=== PATIENT | male | born 1940 | race African-American/Black ===

== ENCOUNTER 2020-04-22 05:03 | Inpatient (IN) | payer MEDICARE, SELFPAY ==
[2020-04-22 05:49] LABS: ALT (SGPT) 17 U/L (8-55); AST (SGOT) 22 U/L (5-34); Albumin 3.7 g/dL (3.4-4.8); Alkaline Phosphatase 81 U/L (40-110); Anion Gap 18 mmol/L (10-20); BUN (Urea Nitrogen) 21 mg/dL (8.4-25.7); Bilirubin, Total 1.6 mg/dL (0.2-1.2); Calc. Creatinine Clearance 0 mL/min (70-130); Calcium 8.7 mg/dL (7.8-10.44); Carbon Dioxide 18 mmol/L (23-31); Chloride 110 mmol/L (98-107); Globulin 2.7 g/dL (2.4-3.5); Glucose 175 mg/dL (83-110); Potassium 3.2 mmol/L (3.5-5.1); Protein, Total 6.4 g/dL (5.8-8.1); Sodium 143 mmol/L (136-145)
[2020-04-22 05:57] LABS: Hemoglobin 12.5 g/dL (14.0-18.0); Mean Corpuscular HGB CONC 30.2 g/dL (32.0-36.0); Mean Corpuscular Hemoglobin 21.9 pg (27.0-31.0); Mean Corpuscular Volume 72.6 fL (78.0-98.0); Mean Platelet Volume 6.3 fL (7.4-10.4); Platelet Count 155 thou/uL (130-400); RBC Distribution Width 15.5 % (11.5-14.5); White Blood Cell (WBC) Count 5.8 thou/uL (4.8-10.8)
[2020-04-22 05:58] LABS: Band 20 % (5-11); Lymphocytes 7 % (21-51); MDiff Complete? YES; Microcytosis SLIGHT = 6-15 cells (100X) (0-5/hpf); Monocytes 3 % (0-10); Neutrophil 70 % (42-75); Platelet Morphology Comment Appears Adequate
[2020-04-22 06:09] LABS: Bacteria/HPF None Seen HPF (None Seen); Bilirubin Negative (Negative); Blood, Urine 3+ (Negative); Clarity Extra Turbid (Clear); Glucose, Urine (Dipstick) Normal (Negative); Ketone, Urine Negative (Negative); Leukocyte 500 Leu/uL (Negative); Nitrite Negative (Negative); Protein, Urine (Dipstick) 100 mg/dL (Neg-Trace); RBC/HPF Greater than 50 HPF (0-3); Specific Gravity, Urine 1.014 (1.002-1.036); Squamous Epithelial 0-3 HPF (0-3); Urobilinogen Normal mg/dL (Less than 2); WBC/HPF Greater than 50 HPF (0-3)
[2020-04-22] MEDS ORDERED: Iothalamate Meglumine 60% 50 ML VIAL FS ONE (06:33)
[2020-04-22 06:44] LABS: SARS-CoV-2 NAA Rapid Test Not Detected (NotDetected)
[2020-04-22] MEDS ORDERED: Ondansetron PF 4 MG/2 ML Vial IVP PRN (07:15)
[2020-04-22] MEDS ORDERED: Acetaminophen 325 MG TAB PO PRN (07:15)
[2020-04-22] MEDS ORDERED: Ondansetron ODT 4 MG TAB PO PRN (07:15)
[2020-04-22] MEDS ORDERED: HYDROcodone/Acetaminophen 5/325 mg Tablet PO PRN ×2 (07:15)
--- NOTE | 2020-04-22 07:15 | PDOC.FPRHP ---
- History of Present Illness Chief Complaint: Abdominal Pain History of Present Illness: The following history was mostly obtained by patients son along with EMS and ED providers due to patients current AMS. Patient is an 79 yo male who presents via EMS with severe abdominal pain. 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 Patient try to push through the pain but then became very weak and so his son called EMS. EMS reports the patient was laying down on the ground in significant pain upon their arrival. Patient took one of his own [place] and received a gram of Tylenol from EMS in route. Upon arrival in the ED patient was found to have a fever of 102.5F and tachycardic in 120s. FAST exam showed severe hydronephrosis on the left kidney. CT abdomen pelvis without contrast showed left-sided 5 mm stone and hydronephrosis. Son reports that the patient has a history of recurrent UTIs and stones in his kidneys. Had a stent removed about 6 months ago. The ED provider discussed the case with on-call urologist Dr. Irvin who planned to take the patient to the operating room for stone removal and possible stent placement. ED Course: Given 2L NS, cefepime 2g, ativan 2mg, morphine 4 mg, zofran 4 mg. Vanc 1 g ordered but not yet given. - Allergies/Adverse Reactions Allergies Allergy/AdvReac Type Severity Reaction Status Date / Time No Known Allergies Allergy Unverified 04/22/20 08:33 - Home Medications Comments: Unknown home medications. Son reports patient has no allergies and takes "about 10 medications". - History PMHx: HTN, Nephrolithiasis, prostate cancer with history of radiation, history of stroke with none to minimal residual deficits PSHx: unknown FHx: unknown Social: unknown - Review of Systems ROS unobtainable: due to mental status (will follow commands to squeeze hands, otherwise no verbal responses) - Vital signs BP 179/87, Pulse 128, RR 40, O2 sat 96% on RA, Wt 90.72 kg - Physical Exam Constitutional: well developed (moaning/groaning in pain, unable to answer questions) HEENT: normocephalic and atraumatic, no scleral icterus, grossly normal vision, grossly normal hearing -HEENT: mucous membranes dry Neck: supple, trachea midline, no LAD Heart: normal S1/S2, no murmurs/rubs/gallops -Heart: tachycardic, sinus rhythm Lungs: CTAB, no respiratory distress Abdomen: soft, bowel sounds present, no masses/distention Musculoskeletal: normal structure, ROM grossly normal Neurological: other (patient writhing in pain, able to follow commands) Skin: no rash/lesions, no jaundice Heme/Lymphatic: no unusual bruising or bleeding, no petechia, no LAD FMR H&P: Results - Labs Result Diagrams: 04/22/20 10:29 04/22/20 05:18 Lab results: WBC 5.8 thou/uL (4.8-10.8) 04/22/20 05:18 Hgb 12.5 g/dL (14.0-18.0) L 04/22/20 05:18 Hct 41.4 % (42.0-52.0) L 04/22/20 05:18 MCV 72.6 fL (78.0-98.0) L 04/22/20 05:18 Plt Count 155 thou/uL (130-400) 04/22/20 05:18 Band Neuts % (Manual) 20 % (5-11) H 04/22/20 05:18 Sodium 143 mmol/L (136-145) 04/22/20 05:18 Potassium 3.2 mmol/L (3.5-5.1) L 04/22/20 05:18 Chloride 110 mmol/L (98-107) H 04/22/20 05:18 Carbon Dioxide 18 mmol/L (23-31) L 04/22/20 05:18 BUN 21 mg/dL (8.4-25.7) 04/22/20 05:18 Creatinine 2.14 mg/dL (0.7-1.3) H 04/22/20 05:18 Glucose 175 mg/dL (83-110) H 04/22/20 05:18 Lactic Acid 4.4 mmol/L (0.5-2.2) H* 04/22/20 05:18 Calcium 8.7 mg/dL (7.8-10.44) 04/22/20 05:18 Total Bilirubin 1.6 mg/dL (0.2-1.2) H 04/22/20 05:18 AST 22 U/L (5-34) 04/22/20 05:18 ALT 17 U/L (8-55) 04/22/20 05:18 Alkaline Phosphatase 81 U/L (40-110) 04/22/20 05:18 Serum Total Protein 6.4 g/dL (5.8-8.1) 04/22/20 05:18 Albumin 3.7 g/dL (3.4-4.8) 04/22/20 05:18 Urine Ketones Negative mg/dL (Negative) 04/22/20 05:17 Urine Blood 3+ (Negative) A 04/22/20 05:17 Urine Nitrite Negative (Negative) 04/22/20 05:17 Ur Leukocyte Esterase 500 Sona/uL (Negative) A 04/22/20 05:17 Urine RBC Greater than 50 HPF (0-3) A 04/22/20 05:17 Urine WBC Greater than 50 HPF (0-3) A 04/22/20 05:17 Ur Squamous Epith Cells 0-3 HPF (0-3) 04/22/20 05:17 Urine Bacteria None Seen HPF (None Seen) 04/22/20 05:17 FMR H&P: A/P - Problem List (1) Left nephrolithiasis Current Visit: Yes Status: Acute Code(s): N20.0 - CALCULUS OF KIDNEY (2) Hypertension Current Visit: Yes Status: Chronic Code(s): I10 - ESSENTIAL (PRIMARY) HYPERTENSION Qualifiers: Hypertension type: essential hypertension Qualified Code(s): I10 - Essential (primary) hypertension (3) Hypokalemia Current Visit: Yes Status: Acute Code(s): E87.6 - HYPOKALEMIA - Plan Sepsis, likely due to Nephrolithiasis -met criteria with fever 102.5F, HR 128, Lactic acid 4.4 -blood and urine cultures pending -WBC 5.8, 20% bands -UA: 500 Leuk, 100 protein, 3+ blood, >50 RBC, >50 WBC, 0-3 squamous epithelial, no bacteria -CMP: Na 143, K 3.2, Cr 2.14, BUN 21, GFR 36, Glucose 175 -will obtain troponin to assess for ACS r/o, EKG shows -s/p Cefepime and Vancomyin in ED -s/p 2L NS bolus, will continue IVF resuscitation with LR @ 200 mL/hr -CXR: no acute process, 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 Mao consulted--appreciate recs -plans to take patient to OR for stone removal -Tylenol and home [place] for pain control Hypokalemia -K 3.2 on admission -replete with IV and PO KCl as needed Hypertension -hold home meds. Diet: NPO, intubated VTE: Heparin Code status: FULL, pending discussion after surgery Disposition/LOS: admit to CCU Addendum - Attending - Attending Attestation Date/Time: 04/22/20 0260 I personally evaluated the patient and discussed the management with Dr. Martinez, in Cysto adn in CCU at time of admission. I agree with the History, Examination, Assessment and Plan documented above with any addition or exceptions noted below. PResumptive UTI, with urinary obstruction. Septic shock. Empiric antibiotics started. NSTEMI secondary to sepsis/illness. Echo shows EF of 20%. Dr Booker not of the opinion that heparin is required. We appreciate Dr Booker care. I am also concerned that patient may have SMA occlusion. CTA of [facility] abdomen planned in consulation with Dr Peguero. Unfortunately hypotension has prevented CTA from proceeding. Right IJ CVC placed [facility] ultrasound guidance. I discussed care plan wtih son who is in agreement. Prognosis is poor. .
--- NOTE | 2020-04-22 07:38 | CT ---
PRELIMINARY REPORT/[facility]/EMERGENCY AFTER HOURS PROCEDURE: EXAM: CT Abdomen and Pelvis Without Intravenous Contrast CLINICAL HISTORY: RIGHT SIDED ABDOMINAL PAIN HISTORY OF UTIs. TECHNIQUE: Axial computed tomography images of the abdomen and pelvis without intravenous contrast. CONTRAST: None. COMPARISON: None FINDINGS: Examination is partially compromised by motion artifact. Imaged intrathoracic contents ar e remarkable for coronary artery disease and elevated left hemidiaphragm with associated atelectasis. Kidneys are normal in axis and position. Severe left hydroureteronephrosis. There is a d istal left ureteral 5 mm stone. Mild right hydroureteronephrosis. No ureteral stones. No urinary bladder stones. Multiple pelvic phleboliths. Distended gallbladder. No pericholecystic inflammatory f indings or calcified stones. Multiple low-density lesions in the liver measuring up to 5 cm are incompletely characterized. The pancreas, spleen, and adrenal glands demonstrate an unremarkable nonc ontrast appearance. Hollow enteric organs are normal in course and caliber. No appendicitis. No intra-abdominal free air/fluid or lymphadenopathy. Aorta is normal in caliber with densely scattered atherosclerosis. Superficial soft tissues are unremarkable. No acute or aggressive appearing skeletal findings. IMPRESSION: Severe left hydroureteronephrosis. There is a 5 mm distal left ureteral stone. Mild right hydroureteronephrosis may be due to a recently passed stone versus infection. No right ureteral or urinary bladder stones identified. Multiple hepatic lesions measure up to 5 cm, which are incompletel y characterized on this exam. MRI is recommended. Distended gallbladder without cholelithiasis or pericholecystic inflammatory findings. Consider ultrasound follow-up as warranted. Coronary artery disease. Elevated left hemidiaphragm. ELECTRONICALLY SIGNED BY: Kenny Winchester MD Apr 22, 2020 5:56:32 AM TWINE REELING MACHINE OPERATOR FINAL REPORT ABDOMEN CT WITHOUT CONTRAST PELVIC CT WITHOUT CONTRAST: HISTORY: Abdominal pain. History of urinary tract infection. COMPARISON: None. FINDINGS: Abdomen CT: Lung bases:Dependent atelectatic changes. Heart size: Normal heart size. No significant pericardial fluid. There are coronary calcifications. Aorta: Atherosclerosis and elongation. Solid organs: Limited evaluation by the absence of IV contrast. Hypodensities in the liver are presum ed to be hepatic cysts. Lymph nodes: No gastrohepatic, retrocrural or periportal lymphadenopathy. Gallbladder: Unremarkable. Mesentery: No mass, lymphadenopathy, free air or free fluid. Kidneys: Mild right-sided structures uropathy secondary to 1 mm calculus in the distal right ureter, best appreciated on coronal image 94.. Severe obstructive uropathy involving the left intrarenal and extra renal collecting system. There is thinning of the left renal cortex suggesting a chronic pr ocess. There are calcifications in the distal left ureter contributing to the overall degree of obstructive uropathy. Alimentary canal: Limited evaluation by the lack of oral contrast. No bowel obstruction. CT PELVIS: No mass, adenopathy, free air or free fluid. Urinary bladder: Unremarkable. Osseous structures: No lytic or blastic lesions. IMPRESSION: 1. This report is in agreement with initial report by [facility]. 2. Severe left-sided hydronephrosis and hydroureter secondary to calculi in the distal left ureter. G iven the presence of left renal cortical thinning, a long-standing process is favored. 3. Mild right-sided hydronephrosis. There appears to be a calculus in the distal right ureter measuri ng approximately 1 mm. Transcribed Date/Time: 04/22/2020 8:07 AM
--- NOTE | 2020-04-22 07:49 | RAD ---
RADIOGRAPH CHEST 1 VIEW: DATE: 04/22/2020 HISTORY: 79-year-old male with fever and tachycardia COMPARISON: None FINDINGS: There is no airspace density, pulmonary edema, or pneumothorax. The lateral costophrenic angles are n ot effaced. Left hemidiaphragm is very elevated. IMPRESSION: 1. Very elevated left hemidiaphragm suggestive of left phrenic nerve palsy. 2. Otherwise No acute pulmonary findings.
[2020-04-22] MEDS ORDERED: Promethazine HCl 25 MG/ML VIAL IM PRN (08:41)
[2020-04-22] MEDS ORDERED: Promethazine HCl 25 MG/ML VIAL SLOW IVP PRN (08:41)
[2020-04-22] MEDS ORDERED: Ondansetron HCl/PF 4 MG/2 ML Vial IVP PRN (08:41)
--- NOTE | 2020-04-22 08:50 | RAD ---
EXAM: Retrograde pyelogram INDICATIONS: Intraoperative imaging during ureteral stent placement COMPARISON: None. FINDINGS: 15 fluoroscopic images presented from OR. Opacification the right collecting structures with no significant abnormality. Placement of right ure teral stent. Opacification of left collecting structures show severe hydronephrosis. Wire is demonstrated in the l eft ureter and upper collecting structures. IMPRESSION: Intraoperative imaging
[2020-04-22] MEDS ORDERED: Potassium Chloride 40 MEQ in Sodium Chloride 0.9% 250 ML 250 ML IVPB SCH (09:00)
[2020-04-22] MEDS ORDERED: Labetalol HCl 100 MG/20 ML VIAL ONE (09:07)
[2020-04-22 09:08] LABS: Bacteria/HPF 2+ HPF (None Seen); Bilirubin Negative (Negative); Blood, Urine 1+ (Negative); Clarity Turbid (Clear); Glucose, Urine (Dipstick) Normal (Negative); Ketone, Urine Negative (Negative); Leukocyte 500 Leu/uL (Negative); Nitrite Negative (Negative); Protein, Urine (Dipstick) 30 mg/dL (Neg-Trace); Specific Gravity, Urine 1.009 (1.002-1.036); Squamous Epithelial None Seen HPF (0-3); Urobilinogen Normal mg/dL (Less than 2); WBC/HPF 21-50 HPF (0-3); pH, Urine 7.5 (5.0-9.0)
[2020-04-22 09:14] LABS: Bilirubin Negative (Negative); Blood, Urine 3+ (Negative); Clarity Turbid (Clear); Glucose, Urine (Dipstick) 70 mg/dL (Negative); Ketone, Urine Negative (Negative); Leukocyte 500 Leu/uL (Negative); Nitrite Negative (Negative); Protein, Urine (Dipstick) 100 mg/dL (Neg-Trace); RBC/HPF Greater than 50 HPF (0-3); Specific Gravity, Urine 1.021 (1.002-1.036); Squamous Epithelial 0-3 HPF (0-3); Urobilinogen Normal mg/dL (Less than 2); WBC/HPF 21-50 HPF (0-3); pH, Urine 8.5 (5.0-9.0)
[2020-04-22 09:22] LABS: Bacteria/HPF 2+ HPF (None Seen); Renal Epithelial 0-3 HPF (None Seen)
[2020-04-22] MEDS ORDERED: Nitroglycerin 0.4 MG TAB (25 Tab Bottle) SL PRN (09:25)
[2020-04-22] MEDS ORDERED: Heparin 10,000 UNITS/ 10 ML VIAL SLOW IVP SCH (09:30)
[2020-04-22] MEDS ORDERED: Metoprolol Tartrate 5 MG/5 ML VIAL IVP SCH (09:30)
[2020-04-22] MEDS ORDERED: Heparin 25,000 units/D5W 500 ML IVPB SCH (09:30)
[2020-04-22 09:38] LABS: Actual Bicarbonate (HCO3a) 17.2 mEq/L (22-28); Base Excess (BEa) -8.1 mEq/L (-2.0 to +3.0); CO2 Tension 34.4 mmHg (35.0-45.0); Calcium, Ionized (arterial) 1.13 mmol/L (1.12-1.30); Carboxyhemoglobin (COHb) 0.8 gm% (0.0-3.0); Hemoglobin (Hb) 12.6 g/dL (14.0-18.0); O2 Tension (PaO2), arterial 57.1 mmHg (> 60.0); Potassium - ABG Lab 2.76 mmol/L (3.70-5.30); pH, Arterial 7.32 (7.35-7.45)
[2020-04-22 09:39] LABS: Puncture Site LRA
--- NOTE | 2020-04-22 09:40 | OP ---
DATE OF PROCEDURE: 04/22/2020 PREOPERATIVE DIAGNOSES: Sepsis, pyuria, hematuria, chronic left hydro, left distal stone and mild right hydro. POSTOPERATIVE DIAGNOSES: Sepsis, pyuria, hematuria, chronic left hydro, left distal stone and mild right hydro. PROCEDURES PERFORMED: Cysto, bilateral retrogrades and bilateral stents. ANESTHESIA: General. ESTIMATED BLOOD LOSS: Less than 50. DRAINS PLACED: 6 x 26 double-J stent on the right, a 6 x 24 on the left, and a 16-Latvian Ribera catheter. FINDINGS: He had no evidence of stricture disease. He had a small prostate. There was no difficulty crossing it with the scope. He had radiation changes on the floor of the bladder. He had no bladder tumor, foreign body, or stone. He had very small ureteral orifices bilaterally. On the right side once we had passed a guidewire through a Pollack, he had very brisk urine output via the Pollack, which would suggest this side was obstructed. The urine was sent for urinalysis and culture did not appear purulent and it did not have an odor, but it was sent for C and S and culture that was on the right side. On the left side, the urine was darker, also not malodorous and this was also sent for urinalysis and culture. DESCRIPTION OF PROCEDURE: After obtaining written and verbal consent from I think the patient's son, he was taken to the operating suite. He was placed in supine position on treatment table. He was given a general anesthetic and oral intubation. PlexiPulses were placed in his lower extremities and turned on. He was placed in dorsal lithotomy position, sterilely prepped and draped. Cystoscopy was performed with a 22-Latvian sheath, this was well lubricated, passed under direct vision through the male urethra into the urinary bladder with aid of a 30-degree lens and video camera and monitor. The bladder was filled and emptied as it was examined both the 30 and the 70-degree lens. The ureteral orifices were quite small and this was probably related to his prior radiation. We brought in a Pollack catheter and brought in through that an angled Glidewire and we were able to direct this through the right ureteral orifice and up the right ureter. We followed this with the Pollack, placing it up in the region of renal pelvis and removed the Glidewire and he had a very brisk drip of urine out the distal end of the Pollack catheter, we collected about an ounce of urine for urinalysis and culture. We then fed a green guidewire up the Pollack and removed the Pollack and passed a 6 x 26 Polaris double-J stent up the right side, so that curled in the renal pelvis proximally and then curled in the bladder distally, a string was not left attached. The left ureter was also quite small. We were able to intubate it in the same manner with the Pollack catheter and angled Glidewire. It was tortuous and had a very distended renal pelvis and calyceal system. We obtained urine from this also and sent it for urinalysis and culture. We put a 6 x 24 Polaris double-J stent up in the same manner. Of note, if we go back to the right side, there was some slight tortuosity of the right ureter about mid ureter on the retrograde study. Once this was completed, it appeared that both of the stents were draining urine into the bladder. The bladder was drained. The instruments were removed. Ribera catheter was placed. A rectal exam was done. He has a very small flat prostate without nodularity. No rectal lesions. Some soft stool in the rectal vault. He was taken out of dorsal lithotomy position and transferred by stretcher to the recovery room, still intubated, where disposition will be made based on what his vital signs are looking like and whether or not he can safely be extubated. I did talk with the family practice team about him indicating my concerns that there perhaps was something else going on with him; although, I think we have good information related to the urinary tract in terms of whether this looks like it is a urinary tract sepsis. Job ID: [id number]
[2020-04-22] MEDS ORDERED: Metoprolol Tartrate 5 MG/5 ML VIAL ONE (09:44)
[2020-04-22 09:57] LABS: Troponin I 0.253 ng/mL (< 0.028)
[2020-04-22 10:00] LABS: CKMB 7.7 ng/mL (0-6.6); Lactic Acid 5.7 mmol/L (0.5-2.2)
[2020-04-22] MEDS ORDERED: Propofol 1,000 MG/100 ML VIAL IV ONE (10:05)
[2020-04-22] MEDS ORDERED: Ventilator Sedation Protocol 1 EACH FS ONE (10:14)
[2020-04-22] MEDS ORDERED: Fentanyl BOLUS 250 ML IVPB PRN (10:30)
[2020-04-22] MEDS ORDERED: Propofol BOLUS 1,000 MG/100 ML VIAL IV PRN (10:30)
[2020-04-22] MEDS ORDERED: Fentanyl CADD 100 ML IV SCH (10:30)
[2020-04-22] MEDS ORDERED: Morphine 2 MG/ML VIAL SLOW IVP PRN (10:30)
--- NOTE | 2020-04-22 10:30 | PDOC.BPN ---
- Brief Progress Note Encounter Date: 04/22/20 Encounter Time: 10:[address] Irvin following cysto procedure. Stone removed from left but given thin cortex of left kidney on CT, he thinks this is a chronic process that has been going on for some time. The right kidney showed good output after stent placment. Stent also placed in left kidney. In PACU, goal was to extubate patient; however, he could not follow commands and was satting in upper 80s. Decision was made to sedate and remain on ventilator and go to CCU. CUSTOMER EXPERIENCE PROFESSIONAL also noticed change in telemetry morphology so ordered EKG. EKG showed diffuse ST depression in leads V1-V6, concerning for posterior infarct. Troponin also increased and lactic acid has worsened. Stat cardiology consult was placed. Cardiology agrees with metoprolol. They do not think urgent cath is needed. We will start heparin drip. For the worsening lactate and diffuse abdominal symptoms not completely explained by kidney issues, we have spoken with radiology and ordered a CT abd pelvis with oral contrast to evaluate the bowels more closely. OG tube to be placed for water soluble oral contrast. This was discussed with Dr. Guzman who agrees with the plan. Please note any changes or addendum from Dr. Guzman below.
[2020-04-22] MEDS ORDERED: Norepinephrine 8 MG/0.9% NS 250 ML ONE (11:03)
[2020-04-22 11:15] LABS: Platelet Count 119 thou/uL (130-400)
[2020-04-22] MEDS ORDERED: VANCOMYCIN IVPB PRN (11:19)
[2020-04-22] MEDS ORDERED: Lorazepam 2 MG/ML VIAL ONE ×2 (11:25→18:56)
[2020-04-22] MEDS: Lorazepam 2 MG/ML VIAL SLOW IVP PRN ×4 (11:25→17:45)
[2020-04-22] MEDS: Lactated Ringer's 1,000 ML IV SCH ×3 (11:33→22:31)
[2020-04-22] MEDS ORDERED: Lidocaine 1% PF 5 ML VIAL ONE (11:41)
[2020-04-22] MEDS ORDERED: PHENYLEPHRINE-NS 100 MCG/ML 10 ML SYRINGE ONE (11:41)
[2020-04-22] MEDS ORDERED: PROPOFOL 200 MG/20 ML VIAL ONE (11:41)
[2020-04-22] MEDS ORDERED: Succinylcholine 200 MG/10 ml SYRINGE FS ONE (11:41)
[2020-04-22] MEDS ORDERED: Rocuronium Bromide 10 MG/ML (10ML VIAL) ONE (11:41)
[2020-04-22] MEDS ORDERED: Albumin 5% 250 ML ONE (11:48)
[2020-04-22] MEDS ORDERED: Fentanyl 100 MCG/2 ML VIAL ONE (11:58)
--- NOTE | 2020-04-22 12:04 | CON ---
DATE OF CONSULTATION: 04/22/2020 This is an 79-year-old male, who lives in [place]. He has no prior medical records here. He was brought in by ambulance. 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 I think he was brought in by ambulance. He was tachycardic, febrile, tachypneic, and hypertensive, but had good O2 saturations looking through the ER records. The ER doctor's notes indicate that he had diffuse abdominal pain, but more on the right than the left. He had urinalysis that showed over 50 red cells and white cells, but no bacteria. His white blood cell count was normal. His creatinine was around 2. We do not have anything to compare this with. His lactic acid was elevated. A noncontrast CAT scan was done that shows probably some liver cysts. It showed a fairly extensive left hydronephrosis with a thin rim of renal parenchyma and a small stone in the lower left ureter. There was no stranding or anything to suggest an abscess around that kidney. There was some mild right hydro. I have reviewed this and did not see any stones on the right. There was a small stone on the left. On talking with his son, he also has a history of prostate cancer. He has a history of some urinary tract infections. He has had a prior history of stones and he had a stent in that was removed about 6 months ago and this was all in [place]. He as mentioned, has history of prostate cancer, for which he underwent radiation therapy a few years ago. We do not really know where he stands with that right now. His medical history also includes a history of stroke with some mild right-sided deficit, history of hypertension. He may have some history of diabetes according to the son. To the son's knowledge, he has not had any problems with his lungs or never had a heart attack and never had ulcers or liver disease. He does not smoke. I think he drank in the past, but it sounds that he has not been currently drinking. He received some pain medication and sedation in the ER, so I could not get any history from him. His abdomen was not rigid. He is uncircumcised. His testicles are descended, somewhat atrophic. He does not have phimosis. I reviewed his CAT scan. I think the left hydro is chronic. Kidneys probably not functioning very well at all and I do not think that is something that is new. This has probably been going on for a great deal of time. This may be where had the stent. He does have a small stone in that left distal ureter. He has some mild right hydro. I cannot see a stone in that right ureter. He also has pyuria and hematuria, although there were no bacteria noted. He is critically ill at this point with all the other mentioned findings with his vital signs. He has received Fortaz and vancomycin. I have scheduled him to go emergently to the OR. I think the safest thing to do with him is to probably place stents on both sides, collect urine from both sides and then try to figure this out based on those findings. I am a little concerned that this is possibly not a urologic issue, or not the only issue going on with him, so if he does not have findings in the OR to explain what is going on, then we may need to look for even further causes for his change in mental status and his septic picture. His COVID test was negative and his chest x-ray did not show obvious infiltrates. Job ID: [id number]
[2020-04-22] MEDS ORDERED: Sodium Chloride 0.9% 1,000 ML IV SCH (12:15)
[2020-04-22] MEDS: Hydrocortisone Sod Succ/PF 100 mg/2 ml Vial IVP SCH ×3 (12:19→23:59)
--- NOTE | 2020-04-22 13:09 | CON ---
DATE OF CONSULTATION: HISTORY OF PRESENT ILLNESS: Nic Sweet is an 79-year-old gentleman, out of town, who presented here with abdominal pain. In the ER, he had a CT abdomen and pelvis done, which showed severe left hydronephrosis with a 5-mm distal left ureteral stone, for which he underwent emergency stent placed in by Urology. He became hypotensive. He is intubated. He is in the ICU, reason for consult. His son is at the bedside who states that he is from out of town, presented with abdominal pain, found to have severe left-sided hydronephrosis. He also took some [place]. PAST MEDICAL HISTORY: Apparently unremarkable for any major medical problems. No history of diabetes or hypertension. His previous surgeries otherwise included in the remote past of prostate. He has a known history of previous kidney disease and apparently some kind of CVA as per the son. 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 PHYSICAL EXAMINATION: VITAL SIGNS: His temperature is 100.4, his pulse is 100, blood pressure 80/60, and he received 2 L of fluid. CHEST: No wheezing. No crackles. CARDIAC: Normal S1 and S2. No gallops. ABDOMEN: Soft. LABORATORY DATA: PO2 of 57, pCO2 of 34, pH of 7.32, 16, 50%, PEEP of 5. Lactic acid 5.7. Urine shows 21-50 wbc's. His coronavirus test rapid was negative. IMPRESSION: 1. Status post sepsis secondary to renal stone and severe left-sided hydronephrosis. 2. Hypotension. PLAN: Stress dose of steroids, broad-spectrum antibiotics. IV fluids being initiated. He is not weanable at this stage. Pulmonary is going to follow while in the ICU. Wean when stable. TIME SPENT: 45 minutes of critical care time. Job ID: [id number]
[2020-04-22] MEDS ORDERED: Norepinephrine 8 MG/0.9% NS 250 ML IVPB SCH (13:15)
--- NOTE | 2020-04-22 13:26 | PRG ---
DATE OF SERVICE: 04/22/2020 When back up and see him today, he is intubated. He is actually on pressure support and his blood pressure is still low. He was not making much urine, it is probably because of the low blood pressure. I looked at the urinalysis that was obtained from the kidneys, they both had pyuria as well as bacteriuria, so it does seem that most likely this is a urinary tract source. Also noticed Dr. Phil Urias, read his CAT scan and felt that he may have had a 1-mm stone in the distal right ureter. In any event, his ureters are both currently drained has a catheter in. So right now, it is going to be antibiotic therapy; hopefully, he is strong enough to recover from this. I will continue to follow along with you over the next couple of days. We will be looking at doing anything about the stones in the short term, maybe in a couple of weeks depending on how he recovers, what sort of procedures for or he could go back to [place] through his urologist there. Job ID: [id number]
[2020-04-22 13:38] LABS: CKMB 27.2 ng/mL (0-6.6)
--- NOTE | 2020-04-22 13:52 | RAD ---
XR Chest 1 View Portable History: Central line placement Comparison: Radiograph same day Findings: Endotracheal tube tip at the clavicular level. Right IJ central venous catheter tip at the mid SVC. Enteric tube tip in gastric body. Elevated left hemidiaphragm. Mild lung hypoinflation. Impression: Satisfactory appearance of the right IJ central venous catheter, enteric and endotracheal tubes.
--- NOTE | 2020-04-22 14:09 | PDOC.BPN ---
- Brief Progress Note Considering his cardiac ischemia appears to be secondary to illness, and acute SMA occlusion (if that is present) is not necessarily improved by heparin therapy, I am stopping the heparin. We will have DVT prophylaxis as appropriate.
--- NOTE | 2020-04-22 14:26 | CON ---
DATE OF CONSULTATION: TIME SPENT: 30 minutes. HISTORY OF PRESENT ILLNESS: The patient is an 79-year-old gentleman with no known history of coronary artery disease, who presented with sepsis and was noted to have abnormal EKG. The patient is intubated, unable to give a coherent history. Following undergoing an emergent urologic procedure, the patient was noted to have an abnormal EKG. PAST MEDICAL HISTORY: 1. Hypertension. 2. Prostate carcinoma. 3. Nephrolithiasis. PAST SURGICAL HISTORY: Unknown. SOCIAL HISTORY: Unknown. PHYSICAL EXAMINATION: GENERAL: This is a hypotensive gentleman with a blood pressure of 75/60. NECK: No jugular venous distention. LUNGS: Clear to auscultation. HEART: Regular rate and rhythm. Normal S1 and S2. A 1/6 systolic murmur. ABDOMEN: Soft and nontender. EXTREMITIES: No edema. VASCULAR: Radial pulses 2+. LABORATORY DATA: Sodium 143, potassium 3.2, chloride 110, bicarbonate 18, BUN 21, and creatinine 2.1. Lactic acid was 5.4. CPK-MB was 7.7 and troponin was 0.25. Initial EKG normal sinus rhythm with ST depressions, suggestive of lateral ischemia. Followup EKG revealed normal sinus rhythm with a nonspecific T-wave abnormality. IMPRESSION: 1. Septic shock. 2. Renal insufficiency. 3. Ischemic EKG changes. PLAN: This gentleman presents in septic shock from a cardiac standpoint. His EKG was abnormal due to stress-induced ischemia. Followup EKG is unremarkable. The patient is on Levophed. We will titrate this to maintain a pressure greater than 90. The patient is being actively hydrated. We will follow this patient with you through his hospitalization. Critical care time 30 minutes. Job ID: [id number] [facility]
--- NOTE | 2020-04-22 15:34 | PDOC.CNTRL ---
Central Line Procedure Note - Procedure Date: 04/22/20 - Description Focused site: internal jugular: Right Ultrasound guidance: Yes Patient tolerated procedure: well Procedure in Details: INDICATION: septic shock PROCEDURE FOOD AND BEVERAGE SERVER: Martha Renee PGY1, Upper level Matilde Martinez, PGY 2 Landing Gear Mechanic: Dr Carlos Guzman MD ATTENDING PHYSICIAN: Dr Carlos Guzman In Attendance (Y/N) Y CONSENT: The procedure was performed emergently and the permission was implied because of the emergent nature. PROCEDURE SUMMARY: The [facility] Central Line Insertion Practices form was completed by an independent observer starting with the first handwash prior to starting sterile technique. A time out was performed. My hands were washed immediately prior to the procedure. I wore a surgical cap, mask with protective eyewear, full gown and sterile gloves throughout the procedure. The patient was placed in Trendelenburg position. RIGHT neck region was prepped using chlorhexidine scrub and draped in sterile fashion using a full drape and sterile probe cover employed. The Internal Jugular vein and carotid artery were identified using the ultrasound. Anesthesia was achieved over the vein using 1% lidocaine. Using real-time out of plane guidance, the introducer needle was inserted into the Internal Jugular vein under direct ultrasound visualization. Venous blood was withdrawn. The syringe was removed and a guidewire was advanced into the introducer needle. The guidewire was visualized in the Internal Jugular Vein by ultrasound. A small incision was made at the skin surface with a scalpel and the introducer needle was exchanged for a dilator over the guidewire. After appropriate dilation was obtained, the dilator was exchanged over the wire for a triple lumen central venous catheter. The wire was removed and the catheter was sutured in place at 15 cm. A sterile sorbaview shield was placed over the catheter at the insertion site. The patient tolerated the procedure without any hemodynamic compromise. At time of procedure completion, all ports aspirated and flushed properly. Post- procedure chest x-ray confirmed placement and absence of PTX. Estimated blood loss is 15mL.
[2020-04-22] MEDS: Norepinephrine 8 MG/0.9% NS 250 ML IVPB SCH (17:11)
[2020-04-22] MEDS ORDERED: Morphine 4 MG/ML VIAL ONE (18:56)
--- NOTE | 2020-04-22 19:22 | CON ---
DATE OF CONSULTATION: HISTORY OF PRESENT ILLNESS: Nic Sweet is an 79-year-old male who was doing yard work, developed abdominal pain, brought to the emergency room in a septic shock. He required intubation. On admission records, it is noted that his abdomen is soft and nontender on exam. The patient was found to have a white count of 5, hemoglobin of 12.5. His sodium was 143, potassium 3.2, BUN 21, creatinine 2.14. Lactic acid 4.4 on admission, 5.7 on recheck. CK-MB was markedly elevated. The patient has been seen by Dr. Zuñiga and has been seen by Nephrology and Urology, Dr. Mao has performed a cystogram and placed stents in both kidneys. He had a chronic obstruction in left from a stone and acute obstruction on the right. Blood cultures, gram-negative rods positive. The patient's blood pressure was in the 60s, on Levophed, now it is 110 on high-dose Levophed. I have been asked by Dr. Guzman to see the patient regarding concern about intestinal ischemia. There is no history of abdominal pain reported prior to this acute incident. There is no history of atrial fibrillation. MEDICATIONS: Home medications, not listed. In the hospital, he is on; 1. Vancomycin. 2. Cefepime. 3. Tylenol. 4. LR. 5. Morphine. 6. Sedated on the vent. ALLERGIES: NONE REPORTED. FAMILY HISTORY: Not obtainable. REVIEW OF SYSTEMS: Not obtainable. PAST MEDICAL HISTORY: The patient has a past history of urolithiasis, past stents placed, hypertension, history of prostate cancer with radiation therapy, history of stroke with no significant residual effects. PAST SURGICAL HISTORY: Urolithiasis, urinary stents placed per history. PHYSICAL EXAMINATION: VITAL SIGNS: Currently, blood pressure 110/80, Levophed drip. GENERAL: The patient opens his eyes with stimulation of voice, but is not able answer questions due to sedation. LUNGS: Clear to auscultation. CARDIAC: Regular rate and rhythm without murmur or gallop. ABDOMEN: Soft and nontender. No guarding whatsoever. EXTREMITIES: Unremarkable. ASSESSMENT AND PLAN: 1. Urosepsis. Continue antibiotics. Urinary stents placed. On Levophed drip, weaning, pressure slightly improved. 2. Elevated lactate, consistent with above. 3. Echocardiogram, 15% to 20% ejection fraction, which is a new finding. Previous evaluation is not available. The patient's troponins are elevated. Dr. Booker has seen him and believes it is demand ischemia. Does not think he has had ST-elevation myocardial infarction. 4. I do not think there is any indication for a CTA. I think the patient's problems are related to his urosepsis and ischemic cardiomyopathy. Await Cardiology evaluation. He has mild acute kidney injury, that is we can tell without reference to prior creatinine and BUN. At this point, CTA is not warranted due to his acute kidney injury and benefits are probably minimal. I do not believe he has ischemic intestinal problems and that his problems can all be explained by urosepsis, both acute and chronic. Job ID: [id number]
[2020-04-22] MEDS ORDERED: Heparin 5,000 UNITS/ML VIAL SC SCH (21:00)
[2020-04-23] MEDS: Norepinephrine 8 MG/0.9% NS 250 ML IVPB SCH (00:01)
[2020-04-23 05:14] LABS: Anion Gap 18 mmol/L (10-20); BUN (Urea Nitrogen) 28 mg/dL (8.4-25.7); Calc. Creatinine Clearance 37 mL/min (70-130); Calcium 7.3 mg/dL (7.8-10.44); Carbon Dioxide 16 mmol/L (23-31); Cardiac Risk 3.6 (Less than 4.5); Chloride 115 mmol/L (98-107); Cholesterol 65 mg/dl (< 200 Desired); Glucose 153 mg/dL (83-110); HDL Cholesterol 18 mg/dL (>60 Neg Risk); LDL Cholesterol, Calculated 16 mg/dL; Potassium 3.8 mmol/L (3.5-5.1); Sodium 145 mmol/L (136-145); Triglycerides 154 mg/dL (Less than 150)
[2020-04-23] MEDS: Propofol 1,000 MG/100 ML VIAL IV PRN ×4 (05:19→20:44)
[2020-04-23 05:20] LABS: Vancomycin, Random 4.8 ug/mL (See Comment)
[2020-04-23] MEDS: Lactated Ringer's 1,000 ML IV SCH ×5 (05:21→23:43)
[2020-04-23 05:27] LABS: Band 12 % (5-11); Hemoglobin 11.2 g/dL (14.0-18.0); Lymphocytes 5 % (21-51); MDiff Complete? YES; Mean Corpuscular HGB CONC 32.3 g/dL (32.0-36.0); Mean Corpuscular Hemoglobin 23.8 pg (27.0-31.0); Mean Corpuscular Volume 73.7 fL (78.0-98.0); Mean Platelet Volume 7.7 fL (7.4-10.4); Monocytes 10 % (0-10); Neutrophil 73 % (42-75); Platelet Count 80 thou/uL (130-400); Platelet Morphology Comment Appears Decreased; RBC Distribution Width 15.6 % (11.5-14.5); RBC Morphology Normal; White Blood Cell (WBC) Count 20.6 thou/uL (4.8-10.8)
[2020-04-23] MEDS: Cefepime 2 GM in Sodium Chloride 0.9% 100 ML IVPB SCH (05:41)
[2020-04-23] MEDS: Hydrocortisone Sod Succ/PF 100 mg/2 ml Vial IVP SCH ×4 (05:42→23:43)
[2020-04-23] MEDS: Aspirin 325 mg Enteric Coated Tablet PO SCH (07:55)
[2020-04-23] MEDS: Pantoprazole 40 MG VIAL IVP SCH (07:55)
[2020-04-23] MEDS: VANCOMYCIN 1.25 GM/250 ML BAG 1.25 GM in Premix Bag 1 BAG IVPB SCH (07:55)
[2020-04-23] MEDS: Lorazepam 2 MG/ML VIAL SLOW IVP PRN ×3 (08:37→16:47)
--- NOTE | 2020-04-23 08:56 | RAD ---
ONE VIEW CHEST: COMPARISON: 04/22/2020. HISTORY: Respiratory distress. Ventilated patient. FINDINGS: Stable endotracheal tube, nasogastric tube, and right-sided internal jugular vascular catheter. Ther e is atherosclerosis of the aorta. Normal cardiac silhouette. There are pleural and parenchymal salima nges in the left lung base. No pneumothorax. IMPRESSION: No significant interval change. POS: PPP
--- NOTE | 2020-04-23 08:59 | PDOC.FM ---
- Subjective Subjective: no acute events overnight. Patient intubated and stable on vent & levophed. - Objective MAR Reviewed: Yes Vital Signs & Weight: Vital Signs (12 hours) Temp Pulse Resp BP Pulse Ox 04/23/20 08:00 20 04/23/20 07:17 20 99 04/23/20 07:00 99.4 F 04/23/20 06:45 94 114/74 100 04/23/20 06:00 20 04/23/20 05:00 98.9 F 04/23/20 04:00 20 04/23/20 02:45 90 04/23/20 02:00 20 04/23/20 00:28 93 04/23/20 00:00 98.4 F 20 04/22/20 23:55 20 04/22/20 22:29 93 Weight Weight 90 kg Most Recent Monitor Data Heart Rate from ECG 93 NIBP 113/81 NIBP BP-Mean 91 Respiration from ECG 20 SpO2 100 I&O: 04/22/20 04/23/20 04/24/20 06:59 06:59 06:59 Intake Total 6664 0 Output Total 1440 110 Balance 5224 -110 Result Diagrams: 04/23/20 04:35 04/23/20 03:30 Phys Exam - Physical Examination Constitutional: NAD Respiratory: no wheezing, clear to auscultation bilateral Cardiovascular: RRR, no significant murmur Gastrointestinal: soft, no distention, positive bowel sounds Musculoskeletal: no edema Skin: no rash Dx/Plan (1) Left nephrolithiasis Code(s): N20.0 - CALCULUS OF KIDNEY Status: Acute (2) Hypertension Code(s): I10 - ESSENTIAL (PRIMARY) HYPERTENSION Status: Chronic Qualifiers: Hypertension type: essential hypertension Qualified Code(s): I10 - Essential (primary) hypertension (3) Hypokalemia Code(s): E87.6 - HYPOKALEMIA Status: Acute - Plan Plan: 79 yo M w/ PMHx of HTN, nephrolithiasis, and prostate CA s/p radiation admitted for sepsis 2/2 nephrolithiasis and found to be bacteremic: Neuro - intubated & sedated on propofol Resp - Pulm consulted, appreciate recs. Stress dose steroids initiated. Albumin dose given. - Vent: SIMV, RR 20, TV 500, Pressure support 10, Peep 6, FiO2 50%, Peak pressure 23 - Plan for wean/extubate tomorrow CV - NSTEMI 2/2 demand ischemia 2/2 sepsis: troponin increased, EKG with transient changes which resolved yesterday - on levophed, continue to wean - Cardiology consulted, appreciate recs. Dobutamine started per - Echo w/ EF of 15-20%, new finding GI/Nutrition - Diet: NPO, strict - if not weaned tomorrow per Dr. Zuñiga's plan, we will consider starting tube feeds. - GI ppx: protonix - initial concern for intestinal ischemia. Dr. Caldwell of Surgery consulted, appreciate recs. Does not recommend CT due to his low suspicion for abdominal/intestinal pathology and due to his decreased renal function /Renal/Fluids/Electrolytes - MERNA vs MERNA on CKD: acute hydronephrosis on R kidney, chronic hydro and thin cortex on L kidney, visualized on CT - Nephrolithiasis: urology consulted, appreciate recs. POD#1 from stone removal and ureteral stents, urine cultures from each kidney pending. - Continue LR at 150 mL/hr ID/Heme: - Sepsis 2/2 gram-neg proteus bacteremia 2/2 acute vs acute on chronic nephrolithiasis - urine cultures pending - blood cultures growing proteus species. Susceptibilities pending. Abx - Cefepime renally dosed - Vancomycin dosed by pharmacy Code: FULL IVF: LR 150mL/hr DVT ppx: SCDs GI ppx: protonix Tubes/Lines: ET, OG, R IJ CVC, Ribera, PIV (04/22) Procedures: POD #1 from stone removal, placement of bilateral ureteral stents on 04/22 Dispo: inpatient, ICU. Keeping family, son, updated on plan of care Addendum - Attending - Attending Attestation Date/Time: 04/23/20 3668 I personally evaluated the patient and discussed the management with Dr. Martinez. I agree with the History, Examination, Assessment and Plan documented above with any addition or exceptions noted below.
--- NOTE | 2020-04-23 09:27 | PRG ---
DATE OF SERVICE: 04/23/2020 SUBJECTIVE: This morning intubated on the vent, sedated. He is responsive when his sedation is decreased. OBJECTIVE: VITAL SIGNS: His temperature is 98, pulse 90, blood pressure 119/80, saturations are 100%, respiratory rate 18. CHEST: No wheezing, no crackles. CARDIAC: Normal S1, S2. ABDOMEN: No masses. DIAGNOSTIC STUDIES: X-ray shows a small left pleural effusion. ASSESSMENT: 1. Sepsis, gram-negative. 2. Hydronephrosis. 3. Ureteral stone. PLAN: Continue present antibiotics. Continue stress dose of steroids. We will start weaning in the next 24 to 48 hours. One-half hour of critical time. Job ID: [id number]
[2020-04-23] MEDS ORDERED: DOBUTamine 500 mg/250 ml 500 MG in Premix Bag 1 BAG IVPB SCH (09:30)
[2020-04-23 09:35] LABS: Lactic Acid 3.3 mmol/L (0.5-2.2)
--- NOTE | 2020-04-23 13:01 | PRG ---
DATE OF SERVICE: 04/23/2020 The patient is still intubated. He is improving. His Levophed dose is quite low. He has had much improvement in his urine output. His creatinine has not really changed from yesterday and that is good. He has gram-negative priscilla in the urine and blood. He is on antibiotic coverage for that and appears to be getting better clinically. We will see what the ID and sensitivity show, although it looks like presumptive Proteus species. Nothing further to add at this time. Job ID: [id number]
[2020-04-24] MEDS: Lorazepam 2 MG/ML VIAL SLOW IVP PRN (01:11)
[2020-04-24] MEDS: Propofol 1,000 MG/100 ML VIAL IV PRN ×2 (02:47→08:33)
[2020-04-24 04:40] LABS: Band 33 % (5-11); Hemoglobin 11.3 g/dL (14.0-18.0); Lymphocytes 2 % (21-51); MDiff Complete? YES; Mean Corpuscular HGB CONC 31.9 g/dL (32.0-36.0); Mean Corpuscular Hemoglobin 23.1 pg (27.0-31.0); Mean Corpuscular Volume 72.4 fL (78.0-98.0); Mean Platelet Volume 10.1 fL (7.4-10.4); Metamyelocyte 1 % (0-0); Monocytes 3 % (0-10); Neutrophil 61 % (42-75); Platelet Count 85 thou/uL (130-400); Platelet Morphology Comment Appears Decreased; RBC Distribution Width 15.6 % (11.5-14.5); Red Blood Cell (RBC) Count 4.91 mill/uL (4.70-6.10); White Blood Cell (WBC) Count 30.4 thou/uL (4.8-10.8)
[2020-04-24 04:44] LABS: ALT (SGPT) 2229 U/L (8-55); AST (SGOT) 989 U/L (5-34); Albumin 2.7 g/dL (3.4-4.8); Alkaline Phosphatase 81 U/L (40-110); Anion Gap 13 mmol/L (10-20); BUN (Urea Nitrogen) 30 mg/dL (8.4-25.7); Bilirubin, Total 1.3 mg/dL (0.2-1.2); Calc. Creatinine Clearance 53 mL/min (70-130); Calcium 7.6 mg/dL (7.8-10.44); Carbon Dioxide 20 mmol/L (23-31); Chloride 114 mmol/L (98-107); Globulin 2.6 g/dL (2.4-3.5); Glucose 134 mg/dL (83-110); Potassium 3.3 mmol/L (3.5-5.1); Protein, Total 5.3 g/dL (5.8-8.1); Sodium 144 mmol/L (136-145)
[2020-04-24 04:48] LABS: Vancomycin, Random 9.1 ug/mL (See Comment)
[2020-04-24] MEDS: Cefepime 2 GM in Sodium Chloride 0.9% 100 ML IVPB SCH (06:10)
[2020-04-24] MEDS: Hydrocortisone Sod Succ/PF 100 mg/2 ml Vial IVP SCH ×4 (06:11→22:35)
[2020-04-24] MEDS: VANCOMYCIN 1.25 GM/250 ML BAG 1.25 GM in Premix Bag 1 BAG IVPB SCH (06:11)
[2020-04-24] MEDS: Aspirin 325 mg Enteric Coated Tablet PO SCH (08:33)
[2020-04-24] MEDS: Pantoprazole 40 MG VIAL IVP SCH (08:33)
--- NOTE | 2020-04-24 08:34 | RAD ---
PORTABLE CHEST: HISTORY: CCU followup. Pneumonia followup. COMPARISON: 04/23/2020. FINDINGS: ET tube, NG tube, and central line unchanged. Hazy opacification of both lung bases, more prominent on the left again noted. Left hemidiaphragm is obscured consistent with left basilar atelectasis and consolidation. IMPRESSION: No significant interval change. POS: AGW
[2020-04-24] MEDS: Lactated Ringer's 1,000 ML IV SCH ×3 (08:52→22:35)
--- NOTE | 2020-04-24 09:14 | PDOC.FM ---
- Subjective Subjective: Patient intubated, sedated. No acute events overnight. - Objective MAR Reviewed: Yes Vital Signs & Weight: Vital Signs (12 hours) Temp Pulse Resp BP Pulse Ox 04/24/20 08:00 97.7 F 04/24/20 07:48 18 96 04/24/20 06:39 96 109/75 97 04/24/20 04:00 98.7 F 04/24/20 02:11 87 04/24/20 00:00 98.9 F 04/23/20 22:39 97 98 Weight Admit Weight 90 kg Weight 94 kg Most Recent Monitor Data Heart Rate from ECG 93 NIBP 110/84 NIBP BP-Mean 92 Respiration from ECG 16 SpO2 97 I&O: 04/23/20 04/24/20 04/25/20 06:59 06:59 06:59 Intake Total 6664 4109.7 Output Total 1440 2190 190 Balance 5224 1919.7 -190 Result Diagrams: 04/25/20 03:00 04/25/20 03:00 Phys Exam - Physical Examination Constitutional: NAD HEENT: PERRLA Respiratory: no wheezing, clear to auscultation bilateral Cardiovascular: RRR, no significant murmur Gastrointestinal: soft, no distention Musculoskeletal: no edema, pulses present Skin: no rash Dx/Plan (1) Left nephrolithiasis Code(s): N20.0 - CALCULUS OF KIDNEY Status: Acute (2) Hypertension Code(s): I10 - ESSENTIAL (PRIMARY) HYPERTENSION Status: Chronic Qualifiers: Hypertension type: essential hypertension Qualified Code(s): I10 - Essential (primary) hypertension (3) Hypokalemia Code(s): E87.6 - HYPOKALEMIA Status: Acute - Plan Plan: 79 yo M w/ PMHx of HTN, nephrolithiasis, and prostate CA s/p radiation admitted for sepsis 2/2 nephrolithiasis and found to be bacteremic: Neuro - intubated & sedated on propofol. Start weaning today per pulm Resp - Pulm consulted, appreciate recs. Stress dose steroids initiated - Vent: SIMV, RR 14, TV 500, Pressure support 10, Peep 5, FiO2 45% - Wean from vent CV - NSTEMI 2/2 demand ischemia 2/2 sepsis: troponin increased, EKG with transient changes which resolved yesterday - discontinued levophed 04/23 - Cardiology consulted, appreciate recs. Dobutamine started per ; however, pt BP and HR have increased so dobutamine only at 1mcg. Await cardiology recs and consider repeat ECHO after acute sepsis improves - Echo w/ EF of 15-20%, new finding GI/Nutrition - Diet: NPO, strict, Tube Feeds started 04/24 - GI ppx: protonix - Dr. Caldwell of Surgery consulted, appreciate recs. No concern for intestinal ischemia - Transaminitis: likely 2/2 sepsis, continue to trend CMPs. When extubated if symptoms, consider sono vs CT /Renal/Fluids/Electrolytes - MERNA vs MERNA on CKD: acute hydronephrosis on R kidney, chronic hydro and thin cortex on L kidney, visualized on CT - Nephrolithiasis: urology consulted, appreciate recs. POD#2 from stone removal and ureteral stents, urine cultures from each kidney pending. - Continue LR at 150 mL/hr - improved renal function today. ID/Heme: - Sepsis 2/2 gram-neg proteus bacteremia 2/2 acute vs acute on chronic nephroli thiasis - Urine and blood growing proteus only resistant to vancomycin. Narrow abx today . Abx - Start ceftriaxone 2g IV q12h. Renal function improved. - D/C vanc, cefepime Code: FULL Diet: NPO, tube feeds IVF: LR DVT ppx: SCDs, hepain GI ppx: protonix Tubes/Lines: ET, OG, R IJ CVC, Ribera, PIV (04/22) Procedures: POD #2 from stone removal, placement of bilateral ureteral stents on 04/22 Dispo: inpatient, ICU. Keeping family, son, updated on plan of care Addendum - Attending - Attending Attestation Date/Time: 04/25/20 3231 I personally evaluated the patient and discussed the management with Dr. Martinez yesterday. I agree with the History, Examination, Assessment and Plan documented above with any addition or exceptions noted below.
--- NOTE | 2020-04-24 09:26 | PRG ---
DATE OF SERVICE: SUBJECTIVE: Nic Sweet remains intubated in the vent. OBJECTIVE: VITAL SIGNS: Temperature 97, respiratory rate 18, sats are 96% on PEEP of 5, 40%, blood pressure 110/84. His I's and O's still slightly negative. CHEST: Rhonchi and crackles. CARDIAC: Normal S1, S2. No gallops. ABDOMEN: No masses. LABORATORY DATA: White count 30,000, H and H 11 and 35, platelet count is 85,000. Still his x-ray shows left pleural effusion. Creatinine 1.4, BUN 30, glucose 134, AST is 989, ALT is 2229. Lactic acid 3.1. Urine culture is growing Proteus, sensitive to the present antibiotic Maxipime. ASSESSMENT: Respiratory failure, sepsis, cardiomyopathy, EF is 20%, left pleural effusion, encephalopathy. PLAN: He was started on Dobutrex. He is on stress dose of steroids. Decrease IV fluids, supportive care, minimize sedation. Wean when stable. This is one-half hour of critical care time. Job ID: [id number]
[2020-04-24] MEDS ORDERED: cefTRIAXone\\ROCEPHIN 2 GM in Sodium Chloride 0.9% 100 ML IVPB SCH (10:00)
[2020-04-24] MEDS ORDERED: DC Sedation Protocol FS ONE (11:03)
[2020-04-24] MEDS ORDERED: Furosemide 20 MG/2 ML VIAL IVP SCH (11:15)
[2020-04-24] MEDS ORDERED: Carvedilol 3.125 MG TAB PO SCH ×3 (13:45→21:00)
[2020-04-24 14:14] LABS: Anion Gap 16 mmol/L (10-20); BUN (Urea Nitrogen) 31 mg/dL (8.4-25.7); Calc. Creatinine Clearance 54 mL/min (70-130); Calcium 7.8 mg/dL (7.8-10.44); Carbon Dioxide 20 mmol/L (23-31); Chloride 115 mmol/L (98-107); Glucose 176 mg/dL (83-110); Magnesium 2.2 mg/dL (1.6-2.6); Potassium 4.6 mmol/L (3.5-5.1); Sodium 146 mmol/L (136-145)
--- NOTE | 2020-04-24 14:16 | PDOC.BPN ---
- Brief Progress Note Called by Brent RN due to intermittent tachycardia and hypertension. Dobutamine drip stopped since 10 am due to similar problem overnight. Stat BMP and magnesium ordered. Unclear if sinus tach vs a-fib w/ RVR on monitor. Brent called for stat EKG which showed a-fib with RVR, paroxysmal. Spontaneous conversion to sinus tach. Notified Dr. Booker. Gave one time dose of carvedilol orally. Patient also noted to have slurred speech. Per son patient had slurred speech and right side weakness with stroke in [address]. [address] Guzman who agreed for Stat CT of brain without contrast. Electrolytes returned and potassium/magnesium wnl.
[2020-04-24] MEDS: Metoprolol Tartrate 5 MG/5 ML VIAL IVP PRN ×2 (15:16→20:20)
--- NOTE | 2020-04-24 15:22 | CT ---
CT head noncontrast HISTORY: Altered mental status. FINDINGS: There is no evidence of acute intracranial hemorrhage or infarct. A well-circumscribed oval low-density focus within the left side of the jah is 0.7 cm greatest diameter and favored to represent an old lacunar infarct. Chronic ischemic small vessel disease is also apparent throughout t he periventricular white matter of each cerebral hemisphere. Diffuse cortical atrophy. Physiologic calcification at the basal ganglia. No mass effect or shift of midline structures. Prominent calcification throughout the arterial structures. IMPRESSION : No acute abnormalities are demonstrated. Prominent atherosclerosis with evidence of small vessel disease. Diffuse cortical atrophy.
[2020-04-24] MEDS ORDERED: Lorazepam 2 MG/ML VIAL SLOW IVP SCH (22:30)
[2020-04-25 03:42] LABS: ALT (SGPT) 1534 U/L (8-55); AST (SGOT) 227 U/L (5-34); Alkaline Phosphatase 117 U/L (40-110); Anion Gap 13 mmol/L (10-20); BUN (Urea Nitrogen) 30 mg/dL (8.4-25.7); Bilirubin, Total 1.1 mg/dL (0.2-1.2); Calc. Creatinine Clearance 67 mL/min (70-130); Calcium 8.3 mg/dL (7.8-10.44); Carbon Dioxide 27 mmol/L (23-31); Chloride 115 mmol/L (98-107); Globulin 2.8 g/dL (2.4-3.5); Glucose 161 mg/dL (83-110); Protein, Total 5.8 g/dL (5.8-8.1); Sodium 152 mmol/L (136-145)
[2020-04-25 03:44] LABS: Potassium 2.7 mmol/L (3.5-5.1)
[2020-04-25 03:50] LABS: Hemoglobin 12.5 g/dL (14.0-18.0); Mean Corpuscular HGB CONC 31.2 g/dL (32.0-36.0); Mean Corpuscular Hemoglobin 22.4 pg (27.0-31.0); Mean Corpuscular Volume 71.8 fL (78.0-98.0); Mean Platelet Volume 9.1 fL (7.4-10.4); Platelet Count 95 thou/uL (130-400); RBC Distribution Width 15.5 % (11.5-14.5); Red Blood Cell (RBC) Count 5.61 mill/uL (4.70-6.10); White Blood Cell (WBC) Count 41.8 thou/uL (4.8-10.8)
[2020-04-25 03:51] LABS: Band 16 % (5-11); Elliptocytes SLIGHT = 2-5 cells (100X) (0-1/hpf); MDiff Complete? YES; Monocytes 2 % (0-10); Neutrophil 82 % (42-75); Ovalocytes SLIGHT = 2-5 cells (100X) (0-1/hpf); Platelet Morphology Comment Appears Decreased
[2020-04-25] MEDS ORDERED: Electrolyte Replacement Protocol 1 EACH FS PRN (04:00)
[2020-04-25] MEDS: Metoprolol Tartrate 5 MG/5 ML VIAL IVP PRN (04:20)
[2020-04-25] MEDS: Potassium Chloride 20 MEQ TAB PO SCH ×2 (04:33→09:31)
[2020-04-25] MEDS: Hydrocortisone Sod Succ/PF 100 mg/2 ml Vial IVP SCH ×3 (06:03→17:20)
--- NOTE | 2020-04-25 06:08 | PDOC.FM ---
- Subjective Subjective: Patient extubated yesterday and doing well. Incident yesterday having some slurred speech. Head CT neg Tachycardia so started on coreg. He can tell me his name today and his . - Objective MAR Reviewed: Yes Vital Signs & Weight: Vital Signs (12 hours) Temp Pulse Ox 04/25/20 02:34 95 04/25/20 00:00 98.2 F 04/24/20 20:00 97.9 F 04/24/20 19:33 94 L 04/24/20 18:23 95 Weight Admit Weight 90 kg Weight 94 kg Most Recent Monitor Data Heart Rate from ECG 86 NIBP 164/104 NIBP BP-Mean 124 Respiration from ECG 22 SpO2 93 I&O: 04/23/20 04/24/20 04/25/20 06:59 06:59 06:59 Intake Total 6664 4109.7 2752 Output Total 1440 2190 7620 Balance 5224 1919.7 -4868 Result Diagrams: 04/25/20 09:17 04/25/20 13:10 EKG Reviewed by me: Yes Radiology Reviewed by me: Yes Phys Exam - Physical Examination Constitutional: NAD (AxO x1) HEENT: PERRLA Respiratory: no wheezing, clear to auscultation bilateral Cardiovascular: RRR, no significant murmur Gastrointestinal: soft, no distention Musculoskeletal: no edema Neurological: moves all 4 limbs Skin: no rash Dx/Plan (1) Left nephrolithiasis Code(s): N20.0 - CALCULUS OF KIDNEY Status: Acute (2) Hypertension Code(s): I10 - ESSENTIAL (PRIMARY) HYPERTENSION Status: Chronic Qualifiers: Hypertension type: essential hypertension Qualified Code(s): I10 - Essential (primary) hypertension (3) Hypokalemia Code(s): E87.6 - HYPOKALEMIA Status: Acute - Plan Plan: 79 yo M w/ PMHx of HTN, nephrolithiasis, and prostate CA s/p radiation admitted for sepsis 2/2 nephrolithiasis and found to be bacteremic: Neuro - extubated 04/24 - AxO x1, continue to monitor speech Resp - Pulm consulted, appreciate recs. Stress dose steroids - O2 req: 4L NC - extubated with speech deficit. CT head negative. MRI today. CV - NSTEMI 2/2 demand ischemia 2/2 sepsis: IMPROVED - Paroxysmal tachycardia: appears to be MAT, runs of 30 seconds or so, started on coreg yesterday. IV metoprolol prn. - Transaminitis: likely 2/2 sepsis, continue to trend CMPs. improving - Cardiology consulted, appreciate recs. - Echo w/ EF of 15-20%, new finding GI/Nutrition - Dysphagia: speech consulted, recommend NPO, can crush some meds, otherwise IV. Advance textures as tolerated. - Diet: NPO, crushed meds - GI ppx: protonix - Dr. Caldwell of Surgery consulted, appreciate recs. No concern for intestinal ischemia /Renal/Fluids/Electrolytes - MERNA vs MERNA on CKD: acute hydronephrosis on R kidney, chronic hydro and thin cortex on L kidney, visualized on CT - Nephrolithiasis: urology consulted, appreciate recs. POD#3 from stone removal and ureteral stents. Essentially patient only has 1 functional kidney. - Hypokalemia: replace, check magnesium. Electrolyte replacement protocol. - Fluids changed per Dr. Zuñiga due to sodium - improved renal function today. ID/Heme: - Sepsis 2/2 gram-neg proteus bacteremia 2/2 acute vs acute on chronic nephrolithiasis - Microcytic anemia - Leukocytosis: profound increase in white count today. Continue to monitor. Clinically, patient is improving. - Final urine cultures: proteus Resistant only to Macrobid Abx - ceftriaxone 1g IV q12h. Renal function improved. - D/C vanc, cefepime Code: FULL Diet: NPO IVF: D5 1/2 NS DVT ppx: SCDs, heparin GI ppx: protonix Tubes/Lines: R IJ CVC, Ribera, PIV (04/22) - d/c'd lines: ET, OG (04/22-04/24) Procedures: POD #3 from stone removal, placement of bilateral ureteral stents on 04/22 Dispo: inpatient, stable for transfer to telemetry today. Addendum - Attending - Attending Attestation Date/Time: 04/25/20 [id number] I personally evaluated the patient and discussed the management with Dr. Martinez. I agree with the History, Examination, Assessment and Plan documented above with any addition or exceptions noted below.
[2020-04-25 07:43] LABS: Phosphorus 1.7 mg/dL (2.3-4.7)
--- NOTE | 2020-04-25 08:53 | RAD ---
PORTABLE CHEST: Date: 04/25/2020 HISTORY: CCU follow-up, on ventilator. COMPARISON: 04/24/2020. FINDINGS/IMPRESSION: ET tube and NG tube have been removed. Central line is unchanged. Hazy infiltrate with effusion obscures the left lung base. Right lung appears clear and unchanged. Angel rderline cardiomegaly is stable. No acute interval change in the chest. POS: AGW
[2020-04-25] MEDS: Aspirin 325 mg Enteric Coated Tablet PO SCH (09:29)
[2020-04-25] MEDS: Carvedilol 6.25 MG TAB PO SCH ×2 (09:30→20:56)
[2020-04-25 09:32] LABS: Hemoglobin 13.4 g/dL (14.0-18.0); Mean Corpuscular Hemoglobin 23.3 pg (27.0-31.0); Mean Platelet Volume 9.4 fL (7.4-10.4); Platelet Count 82 thou/uL (130-400); RBC Distribution Width 15.2 % (11.5-14.5); Red Blood Cell (RBC) Count 5.76 mill/uL (4.70-6.10); White Blood Cell (WBC) Count 41.9 thou/uL (4.8-10.8)
[2020-04-25] MEDS: PHOS-NAK 1 PKT PACK PO SCH ×2 (09:39→15:15)
[2020-04-25] MEDS: cefTRIAXone\\ROCEPHIN 2 GM in Sodium Chloride 0.9% 100 ML IVPB SCH (09:40)
[2020-04-25 09:45] LABS: Lactic Acid 1.7 mmol/L (0.5-2.2)
[2020-04-25 09:50] LABS: Iron 106 ug/dL (65-175); Iron Binding Capacity, Total 245 mcg/dL (261-462); Transferrin, Serum 196 mg/dL (163-344)
[2020-04-25 10:02] LABS: Band 23 % (5-11); Hypochromia SLIGHT = 6-15 cells (100X) (0-5/hpf); Lymphocytes 3 % (21-51); MDiff Complete? YES; Microcytosis SLIGHT = 6-15 cells (100X) (0-5/hpf); Monocytes 2 % (0-10); Neutrophil 72 % (42-75); Ovalocytes SLIGHT = 2-5 cells (100X) (0-1/hpf); Platelet Morphology Comment Appears Decreased; Polychromasia SLIGHT = 2-3 cells (100X) (0-2/hpf)
[2020-04-25 10:15] LABS: Ferritin 508.66 ng/mL (22-322)
[2020-04-25 10:24] LABS: Vitamin B12 Greater than 2000 pg/mL (211-911)
--- NOTE | 2020-04-25 12:48 | PRG ---
DATE OF SERVICE: 04/25/2020 SUBJECTIVE: Nic Sweet remains in the ICU, post extubation. He is awake, responsive. Denies any shortness of breath. OBJECTIVE: VITAL SIGNS: Temperature 98, pulse 92, blood pressure 168/103, respirations sats 94% on 2 L. I's and O's negative. CHEST: Rhonchi, crackles. CARDIAC: Normal S1 and S2. No gallops. ABDOMEN: No masses. LABORATORY DATA: White count 41,000, platelet count is decreased 95,000. Sodium is 152, potassium 2.7,. BUN and creatinine are 30 and 1.17. X-ray shows bilateral pleural effusion, left greater than right. ASSESSMENT: Proteus sepsis, hydronephrosis status post stent, congestive heart failure, pleural effusion, electrolyte imbalance. Will be switching over to D5 with potassium, slow hydration. PLAN: Concern that he still got ongoing leukocytosis probably from sepsis. His liver function is still markedly elevated. Continue observation in the ICU. Prognosis remains guarded. One-half hour of critical care time. Job ID: [id number]
[2020-04-25 13:36] LABS: Anion Gap 12 mmol/L (10-20); BUN (Urea Nitrogen) 26 mg/dL (8.4-25.7); Calc. Creatinine Clearance 76 mL/min (70-130); Calcium 8.1 mg/dL (7.8-10.44); Carbon Dioxide 28 mmol/L (23-31); Chloride 116 mmol/L (98-107); Glucose 169 mg/dL (83-110); Magnesium 2.1 mg/dL (1.6-2.6); Potassium 3.3 mmol/L (3.5-5.1); Sodium 153 mmol/L (136-145)
[2020-04-25] MEDS ORDERED: PHOS-NAK 1 PKT PACK PO SCH (13:45)
[2020-04-25] MEDS: Dextrose 5% w/ 20 mEq KCl 1,000 ML IV SCH ×2 (15:17→20:56)
--- NOTE | 2020-04-25 17:28 | PRG ---
DATE OF SERVICE: 04/25/2020 The patient is afebrile with low-grade temperature. Vital signs are much better. He is actually in room 255 now. He is able to say who he is, what his birthday is, but he is confused as to other things. He has been comfortable in bed. His catheter is draining well. There is no blood. He grew out a Proteus in his blood and urine nearly pansensitive. He is currently on IV Rocephin. We will not be able to look at treating the stones for probably another couple weeks only to recover some strength and get his mental status back. I talked with his son yesterday a great deal and again today about where to treat these, whether we do him here in town where he comes back up from [place] whether he can get back to the urologist who cared for him for his kidney stones in the past. In any event, he seems to be improving on the antibiotics and with the urinary system drained. It is going to probably be a slow recovery form at first but hopefully in the next couple of weeks, he will be better and able to undergo a procedure to get rid of this stones. The one on the right, if indeed there was a stone, was quite small, so that side may just require removal of the stent and a retrograde to be sure that side drains. The one on the left probably would require at least a ureteroscopy and a stone retrieval or maybe laser lithotripsy. That left kidney is grossly hydronephrotic with a thin rim of renal parenchyma and is actually probably not functioning well. Job ID: [id number]
[2020-04-25] MEDS ORDERED: Potassium Chloride 40 MEQ in Premix Bag 1 BAG IVPB SCH (17:30)
[2020-04-26] MEDS: Hydrocortisone Sod Succ/PF 100 mg/2 ml Vial IVP SCH ×4 (00:23→17:18)
[2020-04-26 04:43] LABS: ALT (SGPT) 889 U/L (8-55); AST (SGOT) 77 U/L (5-34); Albumin 2.9 g/dL (3.4-4.8); Alkaline Phosphatase 133 U/L (40-110); Anion Gap 13 mmol/L (10-20); BUN (Urea Nitrogen) 28 mg/dL (8.4-25.7); Bilirubin, Total 1.2 mg/dL (0.2-1.2); Calc. Creatinine Clearance 74 mL/min (70-130); Calcium 8.1 mg/dL (7.8-10.44); Carbon Dioxide 26 mmol/L (23-31); Chloride 110 mmol/L (98-107); Globulin 2.5 g/dL (2.4-3.5); Glucose 187 mg/dL (83-110); Potassium 3.3 mmol/L (3.5-5.1); Protein, Total 5.4 g/dL (5.8-8.1); Sodium 146 mmol/L (136-145)
[2020-04-26 04:55] LABS: Band 14 % (5-11); Elliptocytes SLIGHT = 2-5 cells (100X) (0-1/hpf); Hemoglobin 12.1 g/dL (14.0-18.0); Large Platelets SLIGHT; Lymphocytes 5 % (21-51); MDiff Complete? YES; Mean Corpuscular HGB CONC 31.3 g/dL (32.0-36.0); Mean Corpuscular Hemoglobin 22.6 pg (27.0-31.0); Mean Corpuscular Volume 72.4 fL (78.0-98.0); Mean Platelet Volume 13.1 fL (7.4-10.4); Monocytes 2 % (0-10); Neutrophil 78 % (42-75); Platelet Count 81 thou/uL (130-400); Platelet Morphology Comment Appears Decreased; RBC Distribution Width 15.1 % (11.5-14.5); Reactive Lymphocytes 1 % (0-10); Red Blood Cell (RBC) Count 5.35 mill/uL (4.70-6.10); Schistocytes SLIGHT = 2-5 cells (100X) (0-1/hpf)
[2020-04-26] MEDS: Dextrose 5% w/ 20 mEq KCl 1,000 ML IV SCH (05:11)
[2020-04-26] MEDS: Potassium Chloride 20 MEQ in Premix Bag 1 BAG IVPB SCH ×2 (05:11→09:18)
--- NOTE | 2020-04-26 06:45 | PDOC.FM ---
- Subjective Subjective: Pt is awake and alert this morning. A&Ox2, says he has some "memory problems" due to history of stroke. Complaining on mild lower abdominal pain. Tolerating diet. - Objective Vital Signs & Weight: Vital Signs (12 hours) Temp Pulse Resp BP BP Pulse Ox 04/26/20 03:18 97.9 F 89 18 169/106 H 97 04/26/20 00:20 98 F 93 20 164/79 H 98 04/25/20 20:56 139/93 H 04/25/20 19:35 97.9 F 87 20 139/93 H 96 Weight Admit Weight 90 kg Weight 90.083 kg Most Recent Monitor Data Heart Rate from ECG 81 NIBP 153/99 NIBP BP-Mean 117 Respiration from ECG 19 SpO2 96 I&O: 04/24/20 04/25/20 04/26/20 06:59 06:59 06:59 Intake Total 4109.7 2752 2920 Output Total 2190 7820 3975 Balance 1919.7 -5068 -1055 Result Diagrams: 04/26/20 04:00 04/26/20 04:00 Phys Exam - Physical Examination Constitutional: NAD HEENT: sclera anicteric Neck: supple R IJ central line Respiratory: no wheezing, clear to auscultation bilateral Cardiovascular: RRR, no significant murmur Gastrointestinal: soft, non-tender Musculoskeletal: no edema, pulses present Neurological: non-focal Psychiatric: normal affect Deviation from normal: A&O x2 Dx/Plan - Plan Plan: 79 yo M w/ PMHx of HTN, nephrolithiasis, and prostate CA s/p radiation admitted for sepsis 2/2 nephrolithiasis and found to be bacteremic: Neuro - extubated 04/24 - AxO x2, unsure of patient's baseline, remote hx of CVA - speech recs: pureed diet w/ extra gravy - CT head negative. pending brain MRI Resp - Pulm consulted, appreciate recs. Stress dose steroids - O2 req: 3L NC - extubated 04/24 CV - NSTEMI 2/2 demand ischemia 2/2 sepsis: IMPROVED - Paroxysmal tachycardia: appears to be MAT, runs of 30 seconds or so, started on coreg . IV metoprolol prn. - Transaminitis: likely 2/2 sepsis, continue to trend CMPs. improving - Cardiology consulted, appreciate recs. - Echo w/ EF of 15-20%, new finding GI/Nutrition - Dysphagia: speech consulted, recs as above - Diet: HH, pureed, extra gravy - GI ppx: protonix - Dr. Caldwell of Surgery consulted, appreciate recs. No concern for intestinal ischemia /Renal/Fluids/Electrolytes - MERNA vs MERNA on CKD: acute hydronephrosis on R kidney, chronic hydro and thin cortex on L kidney, visualized on CT - Nephrolithiasis: urology consulted, appreciate recs. POD#4 from ureteral stents. Discussion to be had with pt about doing stone removal here vs with his urologist in the [place] area - Hypokalemia: replace, will continue to monitor - Fluids changed per Dr. Zuñiga due to sodium - improved renal function today. ID/Heme: - Sepsis 2/2 gram-neg proteus bacteremia 2/2 acute vs acute on chronic nephrolithiasis - Microcytic anemia - Leukocytosis: improving, Continue to monitor. Clinically, patient is improving. - Final urine cultures: proteus Resistant only to Macrobid Abx - ceftriaxone 1g IV q12h. Renal function improved. - D/C vanc, cefepime Code: FULL Diet: per speech recs IVF: D5 1/2 NS DVT ppx: SCDs, heparin GI ppx: protonix Tubes/Lines: R IJ CVC, Ribera, PIV (04/22) - d/c'd lines: ET, OG (04/22-04/24) Procedures: POD #4 from stone removal, placement of bilateral ureteral stents on 04/22 Dispo: inpatient, stable, pending urology recs for treatment plans
[2020-04-26] MEDS ORDERED: Non-Formulary Item 1 EACH (Linagliptin [Tradjenta] 5 MG Tablet) PO SCH (09:00)
[2020-04-26] MEDS ORDERED: Hydrochlorothiazide 25 MG TAB PO SCH (09:00)
[2020-04-26] MEDS ORDERED: Losartan 25 MG TAB PO SCH (09:00)
[2020-04-26] MEDS: Fish Oil 1,000 MG CAP PO SCH ×2 (09:15→21:05)
[2020-04-26] MEDS: Carvedilol 6.25 MG TAB PO SCH ×2 (09:16→21:05)
[2020-04-26] MEDS: Rosuvastatin 10 MG TAB PO SCH (09:16)
[2020-04-26] MEDS: Amlodipine 10 MG TAB PO SCH (09:16)
[2020-04-26] MEDS: Aspirin 325 mg Enteric Coated Tablet PO SCH (09:17)
[2020-04-26] MEDS: metFORMIN 500 MG TAB PO SCH ×2 (09:17→17:17)
[2020-04-26] MEDS: Acetaminophen 325 MG TAB PO SCH ×4 (09:17→21:06)
[2020-04-26] MEDS: Alogliptin 25 MG TAB PO SCH (09:17)
[2020-04-26] MEDS: cefTRIAXone\\ROCEPHIN 2 GM in Sodium Chloride 0.9% 100 ML IVPB SCH (09:18)
--- NOTE | 2020-04-26 11:36 | PRG ---
DATE OF SERVICE: 04/26/2020 Please see the note from Dr. Martha Renee, for which I agree. The patient was seen, evaluated, discussed, and examined with the residents by bedside. The patient is improving after intubation for sepsis from an obstructive pyelo. Mental status sounds like he is slowly improving, but still somewhat confused at times. Has a little low potassium that is being replaced. He is growing out Proteus bacteremia. Return to figure out if he is going to have the kidney stone removed by Urology here or more as an outpatient. So, waiting on Neurology's recommendations on that. Otherwise, continuing IV antibiotics of ceftriaxone, but may be able to be switched over to p.o. antibiotics soon. Job ID: [id number]
[2020-04-26] MEDS ORDERED: Magnevist 469MG/ML 20 ML VIAL ONE (11:59)
--- NOTE | 2020-04-26 12:54 | PDOC.CPN ---
- Subjective Date: 04/26/20 Time: 12:53 Interval history: Patient lying in bed, just got back to room from MRI. He is still slightly confused. He denies any chest pain or trouble breathing today. - Review of Systems General: denies: fever/chills, weight/appetite/sleep changes, night sweats, fatigue Respiratory: denies: cough, congestion, shortness of breath, exercise intolerance Cardiovascular: denies: chest pain, palpitation, edema, paroxysmal nocturnal dyspnea, orthopnea Gastrointestinal: denies: nausea, vomiting, diarrhea, constipation, abd pain, GI bleeding Musculoskeletal: denies: pain, tenderness, stiffness, swelling, arthritis/arthralgias Neurological: denies: numbness, syncope, seizure, weakness - Objective Allergies/Adverse Reactions: Allergies Allergy/AdvReac Type Severity Reaction Status Date / Time No Known Allergies Allergy Unverified 04/22/20 08:33 Visit Medications: Current Medications Acetaminophen (Acetaminophen 325 Mg Tab) 650 mg PO Q4HR [facility] Last Admin: 04/26/20 09:17 Dose: 650 mg Documented by: Alogliptin Benzoate (Alogliptin 25 Mg Tab) 25 mg PO DAILY [facility] Last Admin: 04/26/20 09:17 Dose: 25 mg Documented by: Amlodipine Besylate (Amlodipine 10 Mg Tab) 10 mg PO DAILY [facility] Last Admin: 04/26/20 09:16 Dose: 10 mg Documented by: Aspirin (Aspirin 325 Mg Enteric Coated Tablet) 325 mg PO DAILY [facility] Last Admin: 04/26/20 09:17 Dose: 325 mg Documented by: Carvedilol (Carvedilol 6.25 Mg Tab) 12.5 mg PO BID [facility] Last Admin: 04/26/20 09:16 Dose: 12.5 mg Documented by: Fish Oil (Fish Oil 1,000 Mg Cap) 2,000 mg PO BID [facility] Last Admin: 04/26/20 09:15 Dose: 2,000 mg Documented by: Hydrochlorothiazide (Hydrochlorothiazide 25 Mg Tab) 25 mg PO DAILY [facility] Last Admin: 04/26/20 09:16 Dose: 25 mg Documented by: Hydrocortisone Sodium Succinate (Hydrocortisone Sod Succ/Pf 100 Mg/2 Ml Vial) 50 mg IVP Q6HR [facility] Stop: 04/29/20 12:01 Last Admin: 04/26/20 12:22 Dose: 50 mg Documented by: Dobutamine HCl/Dextrose 500 mg (/ Device) 250 mls @ 0 mls/hr IVPB INF [facility]; Protocol Last Admin: 04/23/20 09:26 Dose: 250 mls Documented by: Ceftriaxone Sodium 2 gm/ (Sodium Chloride) 100 mls @ 200 mls/hr IVPB 1000 [facility] Last Admin: 04/26/20 09:18 Dose: 100 mls Documented by: Ibuprofen (Ibuprofen 600 Mg Tab) 600 mg PO Q6H PRN PRN Reason: Mild-Moderate Pain 1-5 Losartan Potassium (Losartan 25 Mg Tab) 50 mg PO DAILY [facility] Last Admin: 04/26/20 09:16 Dose: 50 mg Documented by: Metformin HCl (Metformin 500 Mg Tab) 500 mg PO BID-[facility] Last Admin: 04/26/20 09:17 Dose: 500 mg Documented by: Metoprolol Tartrate (Metoprolol Tartrate 5 Mg/5 Ml Vial) 5 mg IVP Q6H PRN PRN Reason: tachycardia > 100 Last Admin: 04/25/20 04:20 Dose: 5 mg Documented by: Miscellaneous Medication (Electrolyte Replacement Protocol 1 Each) 1 each FS PRN PRN PRN Reason: Pharmacy to dose Nitroglycerin (Nitroglycerin 0.4 Mg Tab (25 Tab Bottle)) 0.4 mg SL Q5MIN PRN PRN Reason: Chest Pain Ondansetron HCl (Ondansetron Odt 4 Mg Tab) 4 mg PO Q6H PRN PRN Reason: Nausea/Vomiting Ondansetron HCl (Ondansetron Pf 4 Mg/2 Ml Vial) 4 mg IVP Q6H PRN PRN Reason: Nausea/Vomiting Pantoprazole Sodium (Pantoprazole 40 Mg Tab) 40 mg PO DAILY [facility] Last Admin: 04/26/20 09:17 Dose: 40 mg Documented by: Rosuvastatin Calcium (Rosuvastatin 10 Mg Tab) 10 mg PO DAILY [facility] Last Admin: 04/26/20 09:16 Dose: 10 mg Documented by: Sodium Chloride (Flush - Normal Saline 10 Ml Syringe) 10 ml IVF Q12HR PRN PRN Reason: Saline Flush Sodium Chloride (Flush - Normal Saline 10 Ml Syringe) 10 ml IVF PRN PRN PRN Reason: Saline Flush Vital Signs & Weight: Vital Signs Temp Pulse Resp BP Pulse Ox 04/26/20 12:20 98.3 F 74 16 160/92 H 96 04/26/20 09:00 98.0 F 90 18 180/107 H 98 04/26/20 05:00 174/87 H 04/26/20 03:18 97.9 F 89 18 169/106 H 97 Admit Weight 198 lb 6.656 oz Weight 198 lb 9.6 oz - Quality Measures Condition: Coronary Artery Disease CV meds: Beta Evelina: Yes, ISIS/ARB: Yes, ASA: Yes - Physical Exam General: appears well, no apparent distress, other (alert and oriented to person and place) HEENT: mucus membranes moist Neck: no bruit Cardiac: regular rate and rhythm, no murmur, S1/S2 Lungs: normal breath sounds, no wheeze, rales, rhonchi Neuro: grossly intact Abdomen: active bowel sounds, soft, non-tender Extremities: 2+ Posterior Tibial, 2+ Dorsalis Pedus Skin: clear Musculoskeletal: no pain - Labs Result Diagrams: 04/26/20 04:00 04/26/20 04:00 Troponin/CKMB CK-MB (CK-2) 27.2 ng/mL (0-6.6) H* 04/22/20 12:30 Troponin I 1.885 ng/mL (< 0.028) H* 04/22/20 12:30 - EKG Interpretation EKG Method: Telemetry EKG: sinus rhythm (SR, depressed ST) - Assessment/Plan Assessment/Plan: 1. Septic shock 2. NSTEMI 3. Coronary artery disease 4. Hypertension: his BP are elevated 180/100's, will increase Losartan to 100 mg PO daily 5. MAT: he had episodes of MAT, he has been in sinus rhythm today 6. Confusion 7. Respiratory failure 8. CHF: His EF is 15-20%, he remains on the Dobutamine drip Pt. seen and eval. by me. I agree with the A/P by the VICE PRESIDENT FOR PHILANTHROPY. Chest clear. RRR gjm
--- NOTE | 2020-04-26 14:50 | MRI ---
MRI BRAIN WITHOUT AND WITH CONTRAST: Date: 04/26/2020 HISTORY: Extubated yesterday and slow to respond. Evaluate for stroke. COMPARISON: CT brain dated 04/24/2020. TECHNIQUE: Multiplanar, multisequence MR images were obtained of the brain without and with IV contrast. FINDINGS: Diffuse cortical atrophy is seen. There is scattered foci of high T2/FLAIR signal in the subcortical and periventricular white matter, likely secondary to small vessel ischemic disease. No restricted di ffusion is seen to suggest an acute infarction. No abnormal enhancement is appreciated. There is no evidence of hydrocephalus, intracranial hemorrhage, or extra-axial fluid collection. The expected flow-voids are present. The corpus callosum, pituitary, and craniocervical junction are unre markable. IMPRESSION: 1. No evidence of acute intracranial abnormality or acute stroke. 2. Small vessel ischemic disease and cerebral atrophy. POS: MARSA
[2020-04-27] MEDS: Hydrocortisone Sod Succ/PF 100 mg/2 ml Vial IVP SCH ×5 (00:24→23:40)
[2020-04-27] MEDS: Acetaminophen 325 MG TAB PO SCH ×6 (00:24→20:33)
[2020-04-27 04:25] LABS: ALT (SGPT) 624 U/L (8-55); AST (SGOT) 68 U/L (5-34); Albumin 2.8 g/dL (3.4-4.8); Alkaline Phosphatase 99 U/L (40-110); Anion Gap 13 mmol/L (10-20); BUN (Urea Nitrogen) 30 mg/dL (8.4-25.7); Calc. Creatinine Clearance 83 mL/min (70-130); Calcium 8.1 mg/dL (7.8-10.44); Carbon Dioxide 25 mmol/L (23-31); Chloride 108 mmol/L (98-107); Globulin 2.4 g/dL (2.4-3.5); Glucose 146 mg/dL (83-110); Protein, Total 5.2 g/dL (5.8-8.1); Sodium 143 mmol/L (136-145)
[2020-04-27 04:56] LABS: Potassium 2.9 mmol/L (3.5-5.1)
[2020-04-27] MEDS: Potassium Chloride 20 MEQ in Premix Bag 1 BAG IVPB SCH ×2 (05:08→06:15)
[2020-04-27 05:26] LABS: Band 30 % (5-11); Elliptocytes SLIGHT = 2-5 cells (100X) (0-1/hpf); Lymphocytes 10 % (21-51); MDiff Complete? YES; Mean Corpuscular Hemoglobin 24.2 pg (27.0-31.0); Mean Corpuscular Volume 73.1 fL (78.0-98.0); Mean Platelet Volume 13.2 fL (7.4-10.4); Monocytes 4 % (0-10); Myelocyte 1 % (0-0); Neutrophil 55 % (42-75); Platelet Count 74 thou/uL (130-400); Platelet Morphology Comment Appears Decreased; Red Blood Cell (RBC) Count 4.99 mill/uL (4.70-6.10); White Blood Cell (WBC) Count 21.5 thou/uL (4.8-10.8)
--- NOTE | 2020-04-27 06:12 | PDOC.FM ---
- Subjective Subjective: Pt says he is feeling much better this morning. His mentation is improved. He has not gotten out of bed yet. He says he would like to go home and follow up with his urologist in [facility]. - Objective Vital Signs & Weight: Vital Signs (12 hours) Temp Pulse Resp BP Pulse Ox 04/27/20 03:10 98.8 F 76 16 153/81 H 92 L 04/26/20 23:15 98.8 F 74 16 150/80 H 93 L 04/26/20 19:25 98.4 F 80 20 168/84 H 93 L Weight Admit Weight 90 kg Weight 89.267 kg Most Recent Monitor Data Heart Rate from ECG 81 NIBP 153/99 NIBP BP-Mean 117 Respiration from ECG 19 SpO2 96 I&O: 04/25/20 04/26/20 04/27/20 06:59 06:59 06:59 Intake Total 2752 2920 1600 Output Total 7828 7315 7355 Balance -2290 -1632 529 Result Diagrams: 04/27/20 03:34 04/27/20 03:34 Phys Exam - Physical Examination Constitutional: NAD Neck: supple R IJ in place Respiratory: no wheezing, clear to auscultation bilateral Cardiovascular: RRR, no significant murmur Gastrointestinal: soft, non-tender Musculoskeletal: no edema Neurological: non-focal Psychiatric: normal affect, A&O x 3 Dx/Plan - Plan Plan: 79 yo M w/ PMHx of HTN, nephrolithiasis, and prostate CA s/p radiation admitted for sepsis 2/2 nephrolithiasis and found to be bacteremic: Neuro - extubated 04/24 - AxO x3, mentation improved today - speech recs: pureed diet w/ extra gravy - CT head negative. Brain MRI: no acute process Resp - Pulm consulted, appreciate recs. Stress dose steroids - O2 req: stable on RA - extubated 04/24 CV - NSTEMI 2/2 demand ischemia 2/2 sepsis: IMPROVED - Paroxysmal tachycardia: resolved, appears to be MAT, runs of 30 seconds or so, started on coreg . IV metoprolol prn. - Transaminitis: likely 2/2 sepsis, continue to trend CMPs. improving - Thrombocytopenia: not on anticoagulation, pending DIC panel - Cardiology consulted, appreciate recs. - Echo w/ EF of 15-20%, new finding GI/Nutrition - Dysphagia: speech consulted, recs as above - Diet: HH, pureed, extra gravy - GI ppx: protonix - Dr. Caldwell of Surgery consulted, appreciate recs. No concern for intestinal ischemia /Renal/Fluids/Electrolytes - MERNA vs MERNA on CKD: acute hydronephrosis on R kidney, chronic hydro and thin cortex on L kidney, visualized on CT - Nephrolithiasis: urology consulted, appreciate recs. POD#5 from ureteral stents. Discussion to be had with pt about doing stone removal here vs with his urologist in the [place] area - Hypokalemia: replace per electrolyte protocol, will continue to monitor - Fluids changed per Dr. Zuñiga due to sodium - improved renal function today. ID/Heme: - Sepsis 2/2 gram-neg proteus bacteremia 2/2 acute vs acute on chronic nephrolithiasis - Microcytic anemia - Leukocytosis: improving, Continue to monitor. Clinically, patient is improving. - Final urine cultures: proteus Resistant only to Macrobid Abx - ceftriaxone 1g IV q12h. Renal function improved. - D/C vanc, cefepime Code: FULL Diet: per speech recs IVF: D5 1/2 NS DVT ppx: SCDs, heparin GI ppx: protonix Tubes/Lines: R IJ CVC, Ribera, PIV (04/22) - d/c'd lines: ET, OG (04/22-04/24) Procedures: POD #4 from stone removal, placement of bilateral ureteral stents on 04/22 Dispo: inpatient, stable, pending urology recs for treatment plans
[2020-04-27] MEDS ORDERED: Potassium Chloride 20 MEQ TAB PO SCH ×2 (06:15→14:45)
[2020-04-27] MEDS: Losartan 25 MG TAB PO SCH (08:49)
[2020-04-27] MEDS: Carvedilol 6.25 MG TAB PO SCH ×2 (08:49→20:34)
[2020-04-27] MEDS: metFORMIN 500 MG TAB PO SCH ×2 (08:49→17:44)
[2020-04-27] MEDS: Aspirin 325 mg Enteric Coated Tablet PO SCH (08:49)
[2020-04-27] MEDS: Amlodipine 10 MG TAB PO SCH (08:49)
[2020-04-27] MEDS: Rosuvastatin 10 MG TAB PO SCH (08:50)
[2020-04-27] MEDS: Alogliptin 25 MG TAB PO SCH (08:50)
[2020-04-27] MEDS: Fish Oil 1,000 MG CAP PO SCH ×2 (08:50→20:34)
[2020-04-27 10:05] LABS: Platelet Count 94 thou/uL (130-400)
[2020-04-27 10:08] LABS: Fibrinogen 204 mg/dL (253-463)
[2020-04-27 10:09] LABS: INR-International Normal Ratio 1.2; PTT 27.6 sec (22.9-36.1); Prothrombin Time 15.2 sec (12.0-14.7)
[2020-04-27 10:30] LABS: D-Dimer Test Greater than 20.00 *mcg/mL (0.27-0.43)
[2020-04-27] MEDS: cefTRIAXone\\ROCEPHIN 2 GM in Sodium Chloride 0.9% 100 ML IVPB SCH (10:38)
[2020-04-27 11:08] LABS: FSP-Qualitative ABNORMAL (Normal); FSP-Semiquantitative >=160 & <320 mcg/mL (Less than 5)
--- NOTE | 2020-04-27 12:40 | PRG ---
DATE OF SERVICE: 04/27/2020 Please see the note from Dr. Martha Renee, for which I agree. The patient was seen, evaluated, discussed, and examined with the residents at bedside. Basically, no major changes is improving and most ways only concern is his platelets, since he has been here, has dropped. He maybe got Lovenox in the ER initially, and we are not seeing that and does not appear to be in any medicines that could be causing this. Potassium is low, so he is on hydrochlorothiazide with kidney stone and potassium being low and blood pressure doing fine, stop that today. So at this point in time, continue same IV antibiotics, although I think we will probably switch him to p.o. Eventually, he is going to need the stone worked on after he gets stents removed. It sounds like they want to do that in [place], but with the impending winter storm, probably will not be discharged today and so we will continue same management and watching his platelets and potassium. In the meantime, exam was completely benign today. Job ID: [id number]
--- NOTE | 2020-04-27 14:27 | PDOC.CPN ---
- Subjective Date: 04/27/20 Time: 13:15 Interval history: Mr. Sweet is doing well today, he has also worked with PT this morning, his son is at bedside. He is not confused today. He states that he is feeling well, he denies any complaints today. - Review of Systems General: denies: fever/chills, weight/appetite/sleep changes, night sweats, fatigue Cardiovascular: denies: chest pain, palpitation, edema, paroxysmal nocturnal dyspnea, orthopnea Gastrointestinal: denies: nausea, vomiting, diarrhea, constipation, abd pain, GI bleeding Musculoskeletal: denies: pain, tenderness, stiffness, swelling, arthritis/arthralgias Neurological: denies: numbness, syncope, seizure, weakness - Objective Allergies/Adverse Reactions: Allergies Allergy/AdvReac Type Severity Reaction Status Date / Time No Known Allergies Allergy Unverified 04/22/20 08:33 Visit Medications: Current Medications Acetaminophen (Acetaminophen 325 Mg Tab) 650 mg PO Q4HR [facility] Last Admin: 04/27/20 14:17 Dose: 650 mg Documented by: Alogliptin Benzoate (Alogliptin 25 Mg Tab) 25 mg PO DAILY [facility] Last Admin: 04/27/20 08:50 Dose: 25 mg Documented by: Amlodipine Besylate (Amlodipine 10 Mg Tab) 10 mg PO DAILY [facility] Last Admin: 04/27/20 08:49 Dose: 10 mg Documented by: Aspirin (Aspirin 325 Mg Enteric Coated Tablet) 325 mg PO DAILY [facility] Last Admin: 04/27/20 08:49 Dose: 325 mg Documented by: Carvedilol (Carvedilol 6.25 Mg Tab) 12.5 mg PO BID [facility] Last Admin: 04/27/20 08:49 Dose: 12.5 mg Documented by: Fish Oil (Fish Oil 1,000 Mg Cap) 2,000 mg PO BID [facility] Last Admin: 04/27/20 08:50 Dose: 2,000 mg Documented by: Hydrocortisone Sodium Succinate (Hydrocortisone Sod Succ/Pf 100 Mg/2 Ml Vial) 50 mg IVP Q6HR [facility] Stop: 04/29/20 12:01 Last Admin: 04/27/20 11:57 Dose: 50 mg Documented by: Ceftriaxone Sodium 2 gm/ (Sodium Chloride) 100 mls @ 200 mls/hr IVPB 1000 [facility] Last Admin: 04/27/20 10:38 Dose: 100 mls Documented by: Ibuprofen (Ibuprofen 600 Mg Tab) 600 mg PO Q6H PRN PRN Reason: Mild-Moderate Pain 1-5 Losartan Potassium (Losartan 25 Mg Tab) 100 mg PO DAILY [facility] Last Admin: 04/27/20 08:49 Dose: 100 mg Documented by: Metformin HCl (Metformin 500 Mg Tab) 500 mg PO BID[facility] Last Admin: 04/27/20 08:49 Dose: 500 mg Documented by: Metoprolol Tartrate (Metoprolol Tartrate 5 Mg/5 Ml Vial) 5 mg IVP Q6H PRN PRN Reason: tachycardia > 100 Last Admin: 04/25/20 04:20 Dose: 5 mg Documented by: Miscellaneous Medication (Electrolyte Replacement Protocol 1 Each) 1 each FS PRN PRN PRN Reason: Pharmacy to dose Nitroglycerin (Nitroglycerin 0.4 Mg Tab (25 Tab Bottle)) 0.4 mg SL Q5MIN PRN PRN Reason: Chest Pain Ondansetron HCl (Ondansetron Odt 4 Mg Tab) 4 mg PO Q6H PRN PRN Reason: Nausea/Vomiting Ondansetron HCl (Ondansetron Pf 4 Mg/2 Ml Vial) 4 mg IVP Q6H PRN PRN Reason: Nausea/Vomiting Pantoprazole Sodium (Pantoprazole 40 Mg Tab) 40 mg PO DAILY [facility] Last Admin: 04/27/20 08:50 Dose: 40 mg Documented by: Rosuvastatin Calcium (Rosuvastatin 10 Mg Tab) 10 mg PO DAILY [facility] Last Admin: 04/27/20 08:50 Dose: 10 mg Documented by: Sodium Chloride (Flush - Normal Saline 10 Ml Syringe) 10 ml IVF Q12HR PRN PRN Reason: Saline Flush Last Admin: 04/26/20 21:05 Dose: 10 ml Documented by: Sodium Chloride (Flush - Normal Saline 10 Ml Syringe) 10 ml IVF PRN PRN PRN Reason: Saline Flush Vital Signs & Weight: Vital Signs Temp Pulse Pulse Pulse Resp BP BP 04/27/20 11:56 72 16 04/27/20 10:38 85 81 168/91 H 169/94 H 04/27/20 08:49 73 04/27/20 08:40 98.8 F 73 16 04/27/20 03:10 98.8 F 76 16 BP Pulse Ox 04/27/20 11:56 133/80 95 02/14/21 10:38 04/27/20 08:49 04/27/20 08:40 153/84 H 97 04/27/20 03:10 153/81 H 92 L Admit Weight 198 lb 6.656 oz Weight 196 lb 12.8 oz - Quality Measures Condition: Coronary Artery Disease CV meds: Beta Evelina: Yes, ISIS/ARB: Yes, ASA: Yes - Physical Exam General: alert & oriented x3, appears well, no apparent distress HEENT: mucus membranes moist, normocephaly Neck: no JVD/HJR, no bruit Cardiac: no murmur, regular rate, regular rhythm Lungs: clear to auscultation, normal breath sounds, no wheeze, rales, rhonchi Neuro: grossly intact, motor function intact Abdomen: active bowel sounds, soft Extremities: no cyanosis, no clubbing, no edema, 2+ Posterior Tibial, 2+ Dorsalis Pedus Skin: clear Musculoskeletal: no pain, no fluid collection - Labs Result Diagrams: 04/27/20 09:47 04/27/20 14:01 Troponin/CKMB CK-MB (CK-2) 27.2 ng/mL (0-6.6) H* 04/22/20 12:30 Troponin I 1.885 ng/mL (< 0.028) H* 04/22/20 12:30 - EKG Interpretation EKG Method: Telemetry EKG: sinus rhythm - Assessment/Plan Assessment/Plan: 1. Septic shock 2. NSTEMI 3. Coronary artery disease 4. Hypertension: his BP is well controlled since increasing Losartan, will continue 5. MAT: no more episodes of MAT overnight, he has been in sinus rhythm today 6. Confusion: resolved 7. Respiratory failure: resolved 8. CHF: His EF is 15-20% he is currently on Losartan Continue current treatment plan, his potassium was low today, his hydrochlorothiazide has been stopped. He is from [place] and would like to establish cardiac care there. Pt. seen and eval. by me. I agree with the A/P by the PHOTOVOLTAIC TESTING TECHNICIAN. He is a little confused this PM but not as much as yesterday. His son is in the room with him. Chest clear. RRR gjm
[2020-04-27 14:32] LABS: Potassium 2.8 mmol/L (3.5-5.1)
[2020-04-27] MEDS: Ibuprofen 600 MG TAB PO PRN (23:38)
[2020-04-28] MEDS: Acetaminophen 325 MG TAB PO SCH ×5 (00:14→21:21)
[2020-04-28] MEDS ORDERED: cefTRIAXone\\ROCEPHIN 2 GM VIAL ONE (07:20)
[2020-04-28] MEDS ORDERED: Amlodipine 10 MG TAB ONE (07:20)
[2020-04-28] MEDS ORDERED: Aspirin 325 mg Enteric Coated Tablet ONE (07:20)
[2020-04-28] MEDS ORDERED: Rosuvastatin 10 MG TAB ONE (07:20)
[2020-04-28] MEDS ORDERED: Fish Oil 1,000 MG CAP ONE (07:20)
[2020-04-28] MEDS ORDERED: Carvedilol 6.25 MG TAB ONE (07:20)
[2020-04-28] MEDS ORDERED: metFORMIN 500 MG TAB ONE (07:20)
[2020-04-28] MEDS ORDERED: Acetaminophen 325 MG TAB ONE (07:20)
[2020-04-28] MEDS ORDERED: Alogliptin 25 MG TAB PO ONE (07:20)
[2020-04-28] MEDS ORDERED: Potassium Chloride 20 MEQ TAB ONE (07:20)
[2020-04-28] MEDS: metFORMIN 500 MG TAB PO SCH ×2 (08:24→16:30)
[2020-04-28] MEDS: Rosuvastatin 10 MG TAB PO SCH (08:24)
[2020-04-28] MEDS: Carvedilol 6.25 MG TAB PO SCH ×2 (08:24→21:22)
[2020-04-28] MEDS: Alogliptin 25 MG TAB PO SCH (08:24)
[2020-04-28] MEDS: Fish Oil 1,000 MG CAP PO SCH ×2 (08:25→21:22)
[2020-04-28] MEDS: Aspirin 325 mg Enteric Coated Tablet PO SCH (08:25)
[2020-04-28] MEDS: Amlodipine 10 MG TAB PO SCH (08:27)
[2020-04-28] MEDS: Potassium Chloride 20 MEQ TAB PO SCH (08:36)
[2020-04-28] MEDS: Hydrocortisone Sod Succ/PF 100 mg/2 ml Vial IVP SCH ×2 (11:13→11:30)
[2020-04-28] MEDS ORDERED: Ibuprofen 600 MG TAB ONE (11:20)
[2020-04-28] MEDS ORDERED: Hydrocortisone Sod Succ/PF 100 mg/2 ml Vial ONE (11:28)
[2020-04-28] MEDS: cefTRIAXone\\ROCEPHIN 2 GM in Sodium Chloride 0.9% 100 ML IVPB SCH (11:30)
[2020-04-28] MEDS: Losartan 25 MG TAB PO SCH (11:30)
[2020-04-28] MEDS: Ibuprofen 600 MG TAB PO PRN ×2 (11:30→18:09)
--- NOTE | 2020-04-28 12:14 | PRG ---
DATE OF SERVICE: 04/28/2020 SUBJECTIVE: Nic Sweet this morning, is awake, alert, responsive. OBJECTIVE: VITAL SIGNS: Temperature 98, pulse 70, room air, blood pressure 182/95. His hypertension resolved. CHEST: No wheezing. No crackles. CARDIAC: Normal S1. ABDOMEN: No masses. ASSESSMENT AND PLAN: Respiratory failure; sepsis syndrome; hypertension, resolved. Discontinue steroids. Continue aggressive cardiac care. Eventually placement. His renal function improved and his white count is decreased. Job ID: [id number]
[2020-04-28 17:50] LABS: ALT (SGPT) 435 U/L (8-55); AST (SGOT) 32 U/L (5-34); Albumin 2.9 g/dL (3.4-4.8); Alkaline Phosphatase 85 U/L (40-110); Anion Gap 15 mmol/L (10-20); BUN (Urea Nitrogen) 28 mg/dL (8.4-25.7); Calc. Creatinine Clearance 78 mL/min (70-130); Calcium 8.2 mg/dL (7.8-10.44); Carbon Dioxide 25 mmol/L (23-31); Chloride 107 mmol/L (98-107); Globulin 2.5 g/dL (2.4-3.5); Glucose 126 mg/dL (83-110); Protein, Total 5.4 g/dL (5.8-8.1); Sodium 144 mmol/L (136-145)
[2020-04-28 19:13] LABS: HIV (1/2) Antibody/Antigen Non-Reactive (NonReactive)
[2020-04-28 19:27] LABS: Anisocytosis SLIGHT = 6-15 cells (100X) (0-5/hpf); Band 25 % (5-11); Hemoglobin 12.2 g/dL (14.0-18.0); Hypochromia SLIGHT = 6-15 cells (100X) (0-5/hpf); Lymphocytes 6 % (21-51); MDiff Complete? YES; Mean Corpuscular HGB CONC 31.1 g/dL (32.0-36.0); Mean Corpuscular Hemoglobin 22.4 pg (27.0-31.0); Mean Corpuscular Volume 72.2 fL (78.0-98.0); Mean Platelet Volume 10.2 fL (7.4-10.4); Metamyelocyte 1 % (0-0); Microcytosis SLIGHT = 6-15 cells (100X) (0-5/hpf); Monocytes 10 % (0-10); Neutrophil 57 % (42-75); Ovalocytes SLIGHT = 2-5 cells (100X) (0-1/hpf); Platelet Count 93 thou/uL (130-400); Platelet Morphology Comment Appears Decreased; Polychromasia MODERATE = 3-4 cells (100X) (0-2/hpf); RBC Distribution Width 15.4 % (11.5-14.5); Reactive Lymphocytes 1 % (0-10); Red Blood Cell (RBC) Count 5.44 mill/uL (4.70-6.10); Schistocytes SLIGHT = 2-5 cells (100X) (0-1/hpf); Target Cells SLIGHT = 2-5 cells (100X) (0-1/hpf); Tear Drops SLIGHT = 2-5 cells (100X) (0-1/hpf)
[2020-04-28 19:27] LABS: HBCM Index 0.06 S/CO (0-0.79); HBSAg Index 0.25 S/CO (0-0.99); HIV 1/2 INDEX 0.09 S/CO (<1.00); Hep A IgM AB Non-Reactive (NonReactive); Hep B Surf Ag Non-Reactive S/CO (NonReactive); Hep C IgG Ab Non-Reactive (NonReactive); Hep C Index 0.14 S/CO (0-0.79); Hepatitis B Core IgM Abs Non-Reactive (NonReactive)
--- NOTE | 2020-04-28 20:51 | PRG ---
DATE OF SERVICE: 04/28/2020 Mr. Sweet is still in room 255. His son is with him. He is much more alert and oriented. He answers questions now, not as confused. He states he was not having difficulty urinating, but just frequency of urination prior to coming into the hospital. I informed him that he had stents up both sides. I reviewed his vital signs are stable. Lab work, his white count is still elevated, but much less compared to what it was. His creatinine is normal. He is still on Rocephin, which covers the Proteus in the urine. Urine is clear. His platelet count is low and he has a little bit of blood in urine, it is not bad. I think it would be very reasonable to remove his catheter tomorrow morning, that will be Tuesday given a voiding trial stents in. I discussed with him and his son. It looks like he is going to [place] for rehab. I believe he is from the [place] area, has urologist there, who is care for him. He could easily follow up with a urologist for care for these bilateral stents and left ureteral stone and probably a very small right ureteral stone. If this did not seem well for him to do, then he is more than welcome to have us do this, but to be a couple of weeks before we consider doing this and I told that to the family. Job ID: [id number]
[2020-04-28] MEDS ORDERED: Potassium Chloride 20 MEQ TAB PO SCH (21:00)
[2020-04-29] MEDS: Ibuprofen 600 MG TAB PO PRN ×2 (00:24→06:05)
[2020-04-29] MEDS: Acetaminophen 325 MG TAB PO SCH ×6 (02:34→20:46)
[2020-04-29 04:09] LABS: ALT (SGPT) 290 U/L (8-55); AST (SGOT) 30 U/L (5-34); Albumin 2.8 g/dL (3.4-4.8); Alkaline Phosphatase 76 U/L (40-110); Anion Gap 11 mmol/L (10-20); BUN (Urea Nitrogen) 26 mg/dL (8.4-25.7); Calc. Creatinine Clearance 88 mL/min (70-130); Calcium 7.8 mg/dL (7.8-10.44); Carbon Dioxide 26 mmol/L (23-31); Chloride 109 mmol/L (98-107); Globulin 2.3 g/dL (2.4-3.5); Glucose 84 mg/dL (83-110); Potassium 3.3 mmol/L (3.5-5.1); Protein, Total 5.1 g/dL (5.8-8.1); Sodium 143 mmol/L (136-145)
[2020-04-29 04:18] LABS: Anisocytosis SLIGHT = 6-15 cells (100X) (0-5/hpf); Band 15 % (5-11); Elliptocytes SLIGHT = 2-5 cells (100X) (0-1/hpf); Eosinophils 1 % (0-10); Hemoglobin 11.5 g/dL (14.0-18.0); Lymphocytes 15 % (21-51); MDiff Complete? YES; Mean Corpuscular HGB CONC 31.6 g/dL (32.0-36.0); Mean Corpuscular Hemoglobin 22.7 pg (27.0-31.0); Mean Platelet Volume 8.9 fL (7.4-10.4); Monocytes 3 % (0-10); Neutrophil 66 % (42-75); Platelet Count 101 thou/uL (130-400); Platelet Morphology Comment Appears Decreased; RBC Distribution Width 15.2 % (11.5-14.5); Red Blood Cell (RBC) Count 5.06 mill/uL (4.70-6.10); White Blood Cell (WBC) Count 19.2 thou/uL (4.8-10.8)
--- NOTE | 2020-04-29 05:56 | PDOC.FM ---
- Subjective Subjective: Pt resting comfortably this morning. He says he feels back to his baseline. He is working with PT, tolerating diet. Denies CP, SOB, N/V or abdominal pain. - Objective Vital Signs & Weight: Vital Signs (12 hours) Temp Pulse Resp BP Pulse Ox 04/29/20 04:00 98.6 F 73 18 165/90 H 95 04/29/20 00:00 164/82 H 04/28/20 20:00 98.4 F 77 18 164/90 H 95 Weight Admit Weight 90 kg Weight 91.172 kg Most Recent Monitor Data Heart Rate from ECG 81 NIBP 153/99 NIBP BP-Mean 117 Respiration from ECG 19 SpO2 96 I&O: 04/27/20 04/28/20 04/29/20 06:59 06:59 06:59 Intake Total 2400 940 1320 Output Total 1875 1075 2240 Balance 146 -688 -829 Result Diagrams: 04/29/20 03:28 04/29/20 03:28 Phys Exam - Physical Examination Constitutional: NAD Neck: supple, full ROM Respiratory: no wheezing, clear to auscultation bilateral Cardiovascular: RRR, no significant murmur Gastrointestinal: soft, no distention Neurological: non-focal Psychiatric: normal affect, A&O x 3 Dx/Plan - Plan Plan: 79 yo M w/ PMHx of HTN, nephrolithiasis, and prostate CA s/p radiation admitted for sepsis 2/2 nephrolithiasis and found to be bacteremic: Neuro - extubated 04/24 - AxO x3, mentation improved today - speech recs: pureed diet w/ extra gravy - CT head negative. Brain MRI: no acute process - PT/OT: recommend rehab, CM consulted- family would like him to be placed near their home in [place] Resp - Pulm consulted, appreciate recs. Stress dose steroids - O2 req: stable on RA - extubated 04/24 CV - NSTEMI 2/2 demand ischemia 2/2 sepsis: IMPROVED - Paroxysmal tachycardia: resolved, appears to be MAT, runs of 30 seconds or so, started on coreg . IV metoprolol prn. - Transaminitis: likely 2/2 sepsis, continue to trend CMPs. improving. HIV/Hep panel: negative - Thrombocytopenia: likely 2/2 sepsis, improving, Plt 101 - Cardiology consulted, appreciate recs. - Echo w/ EF of 15-20%, new finding GI/Nutrition - Dysphagia: speech consulted, recs as above - Diet: HH - GI ppx: protonix - Dr. Caldwell of Surgery consulted, appreciate recs. No concern for intestinal ischemia /Renal/Fluids/Electrolytes - MERNA vs MERNA on CKD: acute hydronephrosis on R kidney, chronic hydro and thin cortex on L kidney, visualized on CT - Nephrolithiasis: urology consulted, appreciate recs. POD#7 from ureteral stents. Remove hennessy today. Pt stable for discharge to f/u with urologist near his home in [place]. - Hypokalemia: replace w/ po, will continue to monitor - improved renal function ID/Heme: - Sepsis 2/2 gram-neg proteus bacteremia 2/2 acute vs acute on chronic nephrolithiasis - Microcytic anemia - Leukocytosis: improving, Continue to monitor. Clinically, patient is improving. - Final urine cultures: proteus Resistant only to Macrobid Abx - ceftriaxone 1g IV q12h. Renal function improved. - D/C vanc, cefepime Code: FULL Diet: per speech recs IVF: D5 1/2 NS DVT ppx: SCDs, lovenox GI ppx: protonix Tubes/Lines: PIV (04/22) - d/c'd lines: ET, OG (04/22-04/24), Hennessy, R IJ Procedures: POD #7 placement of bilateral ureteral stents on 04/22 Dispo: inpatient, stable, discharge pending placement for rehab Addendum - Attending - Attending Attestation Date/Time: 04/29/20 1267 I personally evaluated the patient and discussed the management with Dr. Martinez. I agree with the History, Examination, Assessment and Plan documented above with any addition or exceptions noted below.
[2020-04-29] MEDS ORDERED: HYDROcodone/Acetaminophen 10/325 mg Tablet PO PRN ×2 (05:57→06:11)
[2020-04-29] MEDS ORDERED: Potassium Chloride 20 MEQ TAB PO SCH (07:00)
[2020-04-29] MEDS: Carvedilol 6.25 MG TAB PO SCH ×2 (08:12→20:46)
[2020-04-29] MEDS: Losartan 25 MG TAB PO SCH (08:13)
[2020-04-29] MEDS: Fish Oil 1,000 MG CAP PO SCH ×2 (08:14→20:47)
[2020-04-29] MEDS: Alogliptin 25 MG TAB PO SCH (08:14)
[2020-04-29] MEDS: Rosuvastatin 10 MG TAB PO SCH (08:14)
[2020-04-29] MEDS: metFORMIN 500 MG TAB PO SCH ×2 (08:14→18:11)
[2020-04-29] MEDS: Amlodipine 10 MG TAB PO SCH (08:15)
[2020-04-29] MEDS: Enoxaparin Sodium 40 MG/0.4 ML SYRINGE SC SCH (08:16)
[2020-04-29] MEDS: Aspirin 325 mg Enteric Coated Tablet PO SCH (08:16)
[2020-04-29] MEDS: Potassium Chloride 20 MEQ TAB PO SCH (08:16)
[2020-04-29] MEDS ORDERED: Metoprolol Tartrate 50 MG TAB PO SCH (09:00)
[2020-04-29] MEDS: cefTRIAXone\\ROCEPHIN 2 GM in Sodium Chloride 0.9% 100 ML IVPB SCH (10:30)
--- NOTE | 2020-04-29 16:06 | PRG ---
DATE OF SERVICE: 04/29/2020 SUBJECTIVE: Nic Sweet is an 79-year-old gentleman, status post sepsis Proteus, doing better, sitting in the room without any problem. The patient is going to go to rehab in [place] where he is from. Bilateral stents, left ureteral stone. His white count is decreased. OBJECTIVE: VITAL SIGNS: Temperature 98.0, pulse rate 73, blood pressure was slightly elevated at 174/90, and sats . CHEST: No wheezing. No crackles. CARDIAC: Normal S1. ABDOMEN: No masses. IMPRESSION: 1. Urosepsis, improved. 2. Encephalopathy, much better. 3. Hypokalemia. 4. Hypertension. PLAN: We may consider switching him over to oral antibiotic. Sensitive to his present medication. Job ID: [id number]
--- NOTE | 2020-04-29 17:46 | PRG ---
DATE OF SERVICE: 04/29/2020 The patient is afebrile, stable vital signs. He has been switched over to oral Levaquin. His Ribera catheter was removed today, he is voiding without difficulty. He says the dysuria is improving. Urine is slightly red. He does not voice any difficulties with urination. He is still planning on going to rehab down by [place] and that is on hold currently I think because of the weather issues. He will need these stones treated and the stents removed and probably a couple of weeks as long as he continues to improve and that can either be done in [place] if the family elects with the urologic care that he has had there before or we can do it back here if he prefers coming back. Job ID: [id number]
[2020-04-30] MEDS: Acetaminophen 325 MG TAB PO SCH ×6 (01:08→20:56)
[2020-04-30 05:28] LABS: ALT (SGPT) 231 U/L (8-55); AST (SGOT) 26 U/L (5-34); Albumin 3.1 g/dL (3.4-4.8); Alkaline Phosphatase 75 U/L (40-110); Anion Gap 11 mmol/L (10-20); BUN (Urea Nitrogen) 22 mg/dL (8.4-25.7); Bilirubin, Total 1.2 mg/dL (0.2-1.2); Calc. Creatinine Clearance 88 mL/min (70-130); Calcium 8.2 mg/dL (7.8-10.44); Carbon Dioxide 26 mmol/L (23-31); Chloride 107 mmol/L (98-107); Globulin 2.4 g/dL (2.4-3.5); Glucose 87 mg/dL (83-110); Potassium 3.2 mmol/L (3.5-5.1); Protein, Total 5.5 g/dL (5.8-8.1); Sodium 141 mmol/L (136-145)
--- NOTE | 2020-04-30 06:16 | PDOC.FM ---
- Subjective Subjective: Pt awake and alert this morning. He was able to walk down the vu and back with PT. His hennessy was removed and he is able to void with no pain or hesitation. He is having bowel movements but is not able to get up to go to the bathroom on his own. Tolerating diet. Denies N/V, dysuria, hematuria, abd pain. - Objective Vital Signs & Weight: Vital Signs (12 hours) Temp Pulse Resp BP Pulse Ox 04/30/20 04:00 98.4 F 69 16 159/88 H 94 L 04/29/20 19:39 98.5 F 71 16 138/82 96 Weight Admit Weight 90 kg Weight 86.183 kg Most Recent Monitor Data Heart Rate from ECG 81 NIBP 153/99 NIBP BP-Mean 117 Respiration from ECG 19 SpO2 96 I&O: 04/28/20 04/29/20 04/30/20 06:59 06:59 06:59 Intake Total 940 1320 1630 Output Total 1075 2240 1903 Balance -135 -920 -273 Result Diagrams: 04/30/20 09:15 04/30/20 04:32 Phys Exam - Physical Examination Constitutional: NAD HEENT: sclera anicteric Neck: supple, full ROM Respiratory: no wheezing, clear to auscultation bilateral Cardiovascular: RRR, no significant murmur Gastrointestinal: soft, non-tender, no distention Musculoskeletal: no edema Neurological: non-focal, moves all 4 limbs Psychiatric: normal affect, A&O x 3 Dx/Plan - Plan Plan: 79 yo M w/ PMHx of HTN, nephrolithiasis, and prostate CA s/p radiation admitted for sepsis 2/2 nephrolithiasis and found to be bacteremic: Neuro - extubated 04/24 - AxO x3 - CT head negative. Brain MRI: no acute process - PT/OT: recommend rehab, CM consulted- family would like him to be placed near their home in [place] Resp - Pulm consulted, appreciate recs. - O2 req: stable on RA - extubated 04/24 CV - NSTEMI 2/2 demand ischemia 2/2 sepsis: IMPROVED - Paroxysmal tachycardia: has periods of MAT and Vtach, started on coreg . IV metoprolol prn. - Transaminitis: likely 2/2 sepsis, continue to trend CMPs. improving. HIV/Hep panel: negative - Thrombocytopenia: likely 2/2 sepsis, improving, Plt 101 - Cardiology consulted: ordered repeat echo yesterday, recommended pt to establish care with [facility] in his area for regular outpt f/u - Echo w/ EF of 15-20% - repeat echo 04/29: EF 50-55%, diastolic dysfunction GI/Nutrition - Dysphagia: speech consulted, appreciate recs - Diet: HH - GI ppx: protonix - Dr. Caldwell of Surgery consulted, appreciate recs. No concern for intestinal ischemia /Renal/Fluids/Electrolytes - MERNA vs MERNA on CKD: acute hydronephrosis on R kidney, chronic hydro and thin cortex on L kidney, visualized on CT - Nephrolithiasis: urology consulted, appreciate recs. POD#9 from ureteral stents. Hennessy Dc'd on 04/29, pt voiding well. Pt stable for discharge to f/u with urologist near his home in [place]. - Hypokalemia: replace w/ po, will continue to monitor - improved renal function ID/Heme: - Sepsis 2/2 gram-neg proteus bacteremia 2/2 acute vs acute on chronic nephrolithiasis - Microcytic anemia - Leukocytosis: improving, Continue to monitor. Clinically, patient is improving. - Final urine cultures: proteus Resistant only to Macrobid Abx - Ceftriaxone stopped on 04/29, and levaquin started - D/C vanc, cefepime Code: FULL Diet: per speech recs IVF: SL DVT ppx: SCDs, lovenox GI ppx: protonix Tubes/Lines: PIV (04/22) - d/c'd lines: ET, OG (04/22-04/24), Hennessy, R IJ Procedures: POD #9 placement of bilateral ureteral stents on 04/22 Dispo: inpatient, stable, discharge pending placement for rehab Addendum - Attending - Attending Attestation Date/Time: 04/30/20 3030 I personally evaluated the patient and discussed the management with Dr. Renee. I agree with the History, Examination, Assessment and Plan documented above with any addition or exceptions noted below.
[2020-04-30] MEDS: Fish Oil 1,000 MG CAP PO SCH ×2 (09:31→20:56)
[2020-04-30] MEDS: Rosuvastatin 10 MG TAB PO SCH (09:31)
[2020-04-30] MEDS: Amlodipine 10 MG TAB PO SCH (09:31)
[2020-04-30] MEDS: Carvedilol 25 MG TAB PO SCH ×2 (09:31→20:56)
[2020-04-30] MEDS: Potassium Chloride 20 MEQ TAB PO SCH (09:31)
[2020-04-30] MEDS: Alogliptin 25 MG TAB PO SCH (09:31)
[2020-04-30] MEDS: Enoxaparin Sodium 40 MG/0.4 ML SYRINGE SC SCH (09:31)
[2020-04-30] MEDS: metFORMIN 500 MG TAB PO SCH ×2 (09:31→17:08)
[2020-04-30] MEDS: Losartan 25 MG TAB PO SCH (09:32)
[2020-04-30] MEDS: Aspirin 325 mg Enteric Coated Tablet PO SCH (09:32)
[2020-04-30 09:39] LABS: Hemoglobin 12.6 g/dL (14.0-18.0); Mean Corpuscular HGB CONC 31.8 g/dL (32.0-36.0); Mean Corpuscular Hemoglobin 22.8 pg (27.0-31.0); Mean Corpuscular Volume 71.7 fL (78.0-98.0); Mean Platelet Volume 11.9 fL (7.4-10.4); Platelet Count 110 thou/uL (130-400); Red Blood Cell (RBC) Count 5.54 mill/uL (4.70-6.10); White Blood Cell (WBC) Count 16.5 thou/uL (4.8-10.8)
[2020-04-30 09:57] LABS: Band 4 % (5-11); Lymphocytes 7 % (21-51); MDiff Complete? YES; Metamyelocyte 1 % (0-0); Monocytes 3 % (0-10); Neutrophil 84 % (42-75); Platelet Morphology Comment Appears Decreased; Polychromasia SLIGHT = 2-3 cells (100X) (0-2/hpf); Reactive Lymphocytes 1 % (0-10); Schistocytes SLIGHT = 2-5 cells (100X) (0-1/hpf)
--- NOTE | 2020-04-30 10:53 | PRG ---
DATE OF SERVICE: 04/30/2020 SUBJECTIVE: Nic Sweet this morning awake, alert, responsive, no longer confused. OBJECTIVE: VITAL SIGNS: Temperature 99, pulse , sats 96% on room air, and blood pressure was . He denies any shortness of breath or coughing. CHEST: No wheezing. CARDIAC: Normal S1 and S2. No gallops. LABORATORY DATA: White count 16,000. Lytes are normal. ASSESSMENT: Sepsis, gram negative; hydronephrosis; ureteral stone; respiratory failure; encephalopathy, all much improved. PLAN: Agree with p.o. antibiotics. Hopefully, once the weather gets better, he can be discharged to rehab. Job ID: [id number]
[2020-04-30 11:08] VITALS: BMI 28.0
[2020-04-30] MEDS: HYDROcodone/Acetaminophen 10/325 mg Tablet PO PRN ×2 (11:20→20:55)
[2020-04-30 14:39] LABS: Hematocrit 42.1 % (37.5-51.0); RBC Folate Test Component 734 ng/mL (>498)
--- NOTE | 2020-04-30 15:01 | EKG ---
Test Reason : Blood Pressure : / mmHG Vent. Rate : 109 BPM Atrial Rate : 109 BPM P-R Int : 150 ms QRS Dur : 076 ms QT Int : 336 ms P-R-T Axes : 056 093 223 degrees QTc Int : 452 ms Sinus tachycardia Rightward axis Posterior infarct , possibly acute ACUTE DE / STEMI Abnormal ECG No previous ECGs available Confirmed by JULY BANKS (2) on 04/30/2020 3:01:32 PM Referred By: SEFERINO Confirmed By:JULY BANKS
--- NOTE | 2020-04-30 15:07 | EKG ---
Test Reason : Blood Pressure : / mmHG Vent. Rate : 099 BPM Atrial Rate : 099 BPM P-R Int : 142 ms QRS Dur : 078 ms QT Int : 364 ms P-R-T Axes : 059 090 083 degrees QTc Int : 467 ms Normal sinus rhythm Possible Right ventricular hypertrophy Nonspecific T wave abnormality Prolonged QT Abnormal ECG When compared with ECG of 22-APR-2020 09:13, (Unconfirmed) ST no longer depressed in Anterolateral leads Nonspecific T wave abnormality no longer evident in Inferior leads Confirmed by JULY BANKS (2) on 04/30/2020 3:07:23 PM Referred By: SAMI Confirmed By:JULY BANKS
--- NOTE | 2020-04-30 15:16 | EKG ---
Test Reason : Blood Pressure : / mmHG Vent. Rate : 110 BPM Atrial Rate : 110 BPM P-R Int : 146 ms QRS Dur : 070 ms QT Int : 274 ms P-R-T Axes : 048 104 007 degrees QTc Int : 370 ms Sinus tachycardia Possible Right ventricular hypertrophy Abnormal ECG When compared with ECG of 24-APR-2020 13:23, (Unconfirmed) Sinus rhythm has replaced Atrial fibrillation Nonspecific T wave abnormality no longer evident in Anterior leads Confirmed by JULY BANKS (2) on 04/30/2020 3:16:02 PM Referred By: TRAVIS Confirmed By:JULY BANKS
--- NOTE | 2020-04-30 15:16 | EKG ---
Test Reason : Blood Pressure : / mmHG Vent. Rate : 156 BPM Atrial Rate : 166 BPM P-R Int : 000 ms QRS Dur : 068 ms QT Int : 300 ms P-R-T Axes : 000 109 -29 degrees QTc Int : 483 ms Atrial fibrillation with rapid ventricular response Possible Right ventricular hypertrophy Nonspecific T wave abnormality Abnormal ECG When compared with ECG of 22-APR-2020 11:12, (Unconfirmed) Atrial fibrillation has replaced Sinus rhythm Vent. rate has increased BY 57 BPM Non-specific change in ST segment in Anterior leads Nonspecific T wave abnormality now evident in Inferior leads Confirmed by JULY BANKS (2) on 04/30/2020 3:15:54 PM Referred By: TRAVIS Confirmed By:JULY BANKS
--- NOTE | 2020-04-30 15:18 | EKG ---
Test Reason : Blood Pressure : / mmHG Vent. Rate : 125 BPM Atrial Rate : 097 BPM P-R Int : 000 ms QRS Dur : 068 ms QT Int : 484 ms P-R-T Axes : 000 075 156 degrees QTc Int : 698 ms Atrial fibrillation with rapid ventricular response with premature ventricular or aberrantly conducte d complexes Possible Lateral infarct , age undetermined T wave abnormality, consider inferior ischemia or digitalis effect Abnormal ECG When compared with ECG of 24-APR-2020 13:24, (Unconfirmed) Atrial fibrillation has replaced Sinus rhythm Confirmed by UJLY BANKS (2) on 04/30/2020 3:17:50 PM Referred By: Confirmed By:JULY BANKS
[2020-04-30] MEDS ORDERED: Potassium Chloride 20 MEQ TAB PO SCH (20:00)
[2020-05-01] MEDS: Acetaminophen 325 MG TAB PO SCH ×2 (02:10→06:26)
[2020-05-01 05:12] LABS: ALT (SGPT) 168 U/L (8-55); AST (SGOT) 22 U/L (5-34); Albumin 3.1 g/dL (3.4-4.8); Alkaline Phosphatase 67 U/L (40-110); Anion Gap 11 mmol/L (10-20); BUN (Urea Nitrogen) 18 mg/dL (8.4-25.7); Bilirubin, Total 1.3 mg/dL (0.2-1.2); Calc. Creatinine Clearance 87 mL/min (70-130); Calcium 8.2 mg/dL (7.8-10.44); Carbon Dioxide 25 mmol/L (23-31); Chloride 108 mmol/L (98-107); Globulin 2.4 g/dL (2.4-3.5); Glucose 105 mg/dL (83-110); Potassium 4.3 mmol/L (3.5-5.1); Protein, Total 5.5 g/dL (5.8-8.1); Sodium 140 mmol/L (136-145)
--- NOTE | 2020-05-01 06:08 | PDOC.FM ---
- Subjective Subjective: Pt awake, alert and sitting up in bedside chair. He was able to get from the bed to the chair by himself using the rolling walker. He worked with PT yesterday and was able to go 160'. He is voiding without difficulty. Denies CP, SOB, N/V, abd pain. - Objective Vital Signs & Weight: Vital Signs (12 hours) Temp Pulse Resp BP Pulse Ox 05/01/20 04:00 98.4 F 70 17 135/81 95 04/30/20 20:30 98.8 F 76 18 139/67 98 Weight Admit Weight 90 kg Weight 86.183 kg Most Recent Monitor Data Heart Rate from ECG 81 NIBP 153/99 NIBP BP-Mean 117 Respiration from ECG 19 SpO2 96 I&O: 04/29/20 04/30/20 05/01/20 06:59 06:59 06:59 Intake Total 1320 1630 650 Output Total 2240 1903 Balance -920 -273 650 Result Diagrams: 04/30/20 09:15 05/01/20 04:12 Phys Exam - Physical Examination Constitutional: NAD Neck: supple, full ROM Respiratory: no wheezing, clear to auscultation bilateral Cardiovascular: RRR, no significant murmur Gastrointestinal: soft, non-tender Neurological: non-focal Psychiatric: normal affect, A&O x 3 Dx/Plan - Plan Plan: 79 yo M w/ PMHx of HTN, nephrolithiasis, and prostate CA s/p radiation admitted for sepsis 2/2 nephrolithiasis and found to be bacteremic: Neuro - extubated 04/24 - AxO x3 - CT head negative. Brain MRI: no acute process - PT/OT: recommend rehab, CM consulted- pending insurance approval of [facility] Resp - Pulm consulted, appreciate recs. - O2 req: stable on RA - extubated 04/24 CV - NSTEMI 2/2 demand ischemia 2/2 sepsis: IMPROVED - Paroxysmal tachycardia: has periods of MAT and Vtach, started on coreg . IV metoprolol prn. - Transaminitis: likely 2/2 sepsis, continue to trend CMPs. improving. HIV/Hep panel: negative - Thrombocytopenia: likely 2/2 sepsis, improving - Cardiology consulted: ordered repeat echo yesterday, recommended pt to establish care with technical consultant in his area for regular outpt f/u - Echo w/ EF of 15-20% - repeat echo 04/29: EF 50-55%, diastolic dysfunction GI/Nutrition - Dysphagia: speech consulted, appreciate recs - Diet: HH - GI ppx: protonix - Dr. Caldwell of Surgery consulted, appreciate recs. No concern for intestinal ischemia /Renal/Fluids/Electrolytes - MERNA vs MERNA on CKD: acute hydronephrosis on R kidney, chronic hydro and thin cortex on L kidney, visualized on CT - Nephrolithiasis: urology consulted, appreciate recs. POD#[address] ents. Ribera Dc'd on 04/29, pt voiding well. Pt stable for discharge to f/u with urologist near his home in [place]. - Hypokalemia: replace w/ po, will continue to monitor - improved renal function ID/Heme: - Sepsis 2/2 gram-neg proteus bacteremia 2/ acute vs acute on chronic nephrolithiasis - Microcytic anemia - Leukocytosis: improving, Continue to monitor. Clinically, patient is improving. - Final urine cultures: proteus Resistant only to Macrobid Abx - Ceftriaxone stopped on 04/29, and levaquin started - D/C vanc, cefepime Code: FULL Diet: per speech recs IVF: SL DVT ppx: SCDs, lovenox GI ppx: protonix Tubes/Lines: PIV (04/22) - d/c'd lines: ET, OG (04/22-04/24), Ribera, R IJ Procedures: POD #10 placement of bilateral ureteral stents on 04/22 Dispo: inpatient, stable, discharge pending placement for rehab
[2020-05-01] MEDS ORDERED: Acetaminophen 325 MG TAB PO PRN (08:58)
[2020-05-01] MEDS: Enoxaparin Sodium 40 MG/0.4 ML SYRINGE SC SCH (09:31)
[2020-05-01] MEDS: Alogliptin 25 MG TAB PO SCH (09:32)
[2020-05-01] MEDS: Rosuvastatin 10 MG TAB PO SCH (09:32)
[2020-05-01] MEDS: Aspirin 325 mg Enteric Coated Tablet PO SCH (09:32)
[2020-05-01] MEDS: Losartan 25 MG TAB PO SCH (09:32)
[2020-05-01] MEDS: Carvedilol 25 MG TAB PO SCH ×2 (09:32→21:13)
[2020-05-01] MEDS: metFORMIN 500 MG TAB PO SCH ×2 (09:32→16:06)
[2020-05-01] MEDS: HYDROcodone/Acetaminophen 10/325 mg Tablet PO PRN ×2 (09:32→21:17)
[2020-05-01] MEDS: Amlodipine 10 MG TAB PO SCH (09:33)
[2020-05-01] MEDS: Fish Oil 1,000 MG CAP PO SCH ×2 (09:33→21:13)
--- NOTE | 2020-05-01 13:19 | PRG ---
DATE OF SERVICE: 05/01/2020 ADDENDUM: This is an addendum to the note of Dr. Martha Renee. Mr. Sweet is sitting comfortably in a chair this morning. He is afebrile and having no acute issues. He had been originally admitted with sepsis secondary to urinary obstruction and urinary tract infection. He has made a remarkable improvement and will follow up with his urologist for more definitive treatment of his BPH in a week or two. Job ID: [id number]
--- NOTE | 2020-05-01 17:21 | PRG ---
DATE OF SERVICE: 05/01/2020 The patient has been afebrile. Vital signs look stable. He is probably going to rehab shortly. He is getting physical therapy now. I talked with the son. They are looking at using the urologist that had cared for him before down in the [facility]. I have given him my name and my phone number. I have written down briefly what we did in a notebook that the son has, so has this to give them and hopefully of copies of his discharge summary also go with him for this urologist too. The son does have the urologist's name. At this point, we will sign off. Job ID: [id number]
[2020-05-02 04:41] LABS: ALT (SGPT) 123 U/L (8-55); AST (SGOT) 19 U/L (5-34); Alkaline Phosphatase 65 U/L (40-110); Anion Gap 11 mmol/L (10-20); BUN (Urea Nitrogen) 20 mg/dL (8.4-25.7); Calc. Creatinine Clearance 75 mL/min (70-130); Calcium 8.1 mg/dL (7.8-10.44); Carbon Dioxide 24 mmol/L (23-31); Chloride 109 mmol/L (98-107); Globulin 2.3 g/dL (2.4-3.5); Glucose 93 mg/dL (83-110); Potassium 3.8 mmol/L (3.5-5.1); Protein, Total 5.3 g/dL (5.8-8.1); Sodium 140 mmol/L (136-145)
--- NOTE | 2020-05-02 06:02 | PDOC.FM ---
- Subjective Subjective: Pt awake and alert on exam this morning. He has been using the rolling walker to get around his room on his own. Tolerating diet. No problems with urination. - Objective Vital Signs & Weight: Vital Signs (12 hours) Temp Pulse Resp BP Pulse Ox 05/02/20 04:00 98.2 F 73 18 132/80 98 05/01/20 20:00 97 05/01/20 19:43 97.9 F 86 20 129/70 97 Weight Admit Weight 90 kg Weight 84.414 kg Most Recent Monitor Data Heart Rate from ECG 81 NIBP 153/99 NIBP BP-Mean 117 Respiration from ECG 19 SpO2 96 I&O: 04/30/20 05/01/20 05/02/20 06:59 06:59 06:59 Intake Total 1630 1130 720 Output Total 1903 100 450 Balance -273 1030 270 Result Diagrams: 05/02/20 06:50 05/02/20 04:02 Phys Exam - Physical Examination Constitutional: NAD Neck: supple, full ROM Respiratory: no wheezing, clear to auscultation bilateral Cardiovascular: RRR, no significant murmur Gastrointestinal: soft, no distention Musculoskeletal: no edema Neurological: non-focal, moves all 4 limbs Psychiatric: normal affect, A&O x 3 Dx/Plan - Plan Plan: 79 yo M w/ PMHx of HTN, nephrolithiasis, and prostate CA s/p radiation admitted for sepsis 2/2 nephrolithiasis and found to be bacteremic: Neuro - extubated 04/24 - AxO x3 - CT head negative. Brain MRI: no acute process - PT/OT: recommend rehab, CM consulted-[facility], [facility], waiting on bed Resp - Pulm consulted, appreciate recs. - O2 req: stable on RA - extubated 04/24 CV - NSTEMI 2/2 demand ischemia 2/2 sepsis: IMPROVED - Paroxysmal tachycardia: has periods of MAT and Vtach, started on coreg . IV metoprolol prn. - Transaminitis: likely 2/2 sepsis, continue to trend CMPs. improving. HIV/Hep panel: negative - Thrombocytopenia: likely 2/2 sepsis, improving - Cardiology consulted: ordered repeat echo yesterday, recommended pt to establish care with [facility] in his area for regular outpt f/u - Echo w/ EF of 15-20% - repeat echo 04/29: EF 50-55%, diastolic dysfunction GI/Nutrition - Dysphagia: speech consulted, appreciate recs - Diet: HH - GI ppx: protonix - Dr. Caldwell of Surgery consulted, appreciate recs. No concern for intestinal ischemia /Renal/Fluids/Electrolytes - MERNA vs MERNA on CKD: acute hydronephrosis on R kidney, chronic hydro and thin cortex on L kidney, visualized on CT - Nephrolithiasis: urology consulted, appreciate recs. POD#11 from ureteral stents. Ribera Dc'd on 04/29, pt voiding well. Pt stable for discharge to f/u with urologist near his home in [place]. - Hypokalemia: replace w/ po, will continue to monitor - improved renal function ID/Heme: - Sepsis 2/2 gram-neg proteus bacteremia / acute vs acute on chronic nephrolithiasis - Microcytic anemia - Leukocytosis: improving, Continue to monitor. Clinically, patient is improving. - Final urine cultures: proteus Resistant only to Macrobid Abx - Ceftriaxone stopped on 04/29, and levaquin started - D/C vanc, cefepime Code: FULL Diet: per speech recs IVF: SL DVT ppx: SCDs, lovenox GI ppx: protonix Tubes/Lines: PIV (04/22) - d/c'd lines: ET, OG (04/22-04/24), Ribera, R IJ Procedures: POD #11 placement of bilateral ureteral stents on 04/22 Dispo: inpatient, stable, discharge pending placement for rehab
[2020-05-02 07:18] LABS: #Eosinphils 0.1 thou/uL (0.0-0.7); #Lymphocytes 1.2 thou/uL (1.20-3.40); #Monocytes 0.9 thou/uL (0.11-0.59); #Neutrophils 7.7 thou/uL (1.40-6.50); %Basophils 0.2 % (0.0-1.0); %Eosinophils 1.5 % (0.0-10.0); %Lymphocytes 12.2 % (21.0-51.0); %Monocytes 8.6 % (0.0-10.0); %Neutrophils 77.5 % (42.0-75.0); Hemoglobin 11.9 g/dL (14.0-18.0); Mean Corpuscular HGB CONC 32.4 g/dL (32.0-36.0); Mean Corpuscular Volume 74.2 fL (78.0-98.0); Mean Platelet Volume 10.3 fL (7.4-10.4); Platelet Count 114 thou/uL (130-400); RBC Distribution Width 16.3 % (11.5-14.5); Red Blood Cell (RBC) Count 4.94 mill/uL (4.70-6.10); White Blood Cell (WBC) Count 9.9 thou/uL (4.8-10.8)
[2020-05-02] MEDS ORDERED: Potassium Chloride 20 MEQ TAB PO SCH (08:00)
[2020-05-02 08:05] LABS: Band 4 % (5-11); Burr Cells SLIGHT = 2-5 cells (100X) (0-1/hpf); Lymphocytes 12 % (21-51); MDiff Complete? YES; Metamyelocyte 1 % (0-0); Microcytosis SLIGHT = 6-15 cells (100X) (0-5/hpf); Monocytes 7 % (0-10); Myelocyte 1 % (0-0); Neutrophil 68 % (42-75); Platelet Morphology Comment Appears Decreased; Polychromasia SLIGHT = 2-3 cells (100X) (0-2/hpf); Reactive Lymphocytes 7 % (0-10)
[2020-05-02] MEDS: Enoxaparin Sodium 40 MG/0.4 ML SYRINGE SC SCH ×2 (09:18→09:24)
[2020-05-02] MEDS: Alogliptin 25 MG TAB PO SCH (09:18)
[2020-05-02] MEDS: Aspirin 325 mg Enteric Coated Tablet PO SCH (09:19)
[2020-05-02] MEDS: Fish Oil 1,000 MG CAP PO SCH (09:19)
[2020-05-02] MEDS: Amlodipine 10 MG TAB PO SCH (09:19)
[2020-05-02] MEDS: Rosuvastatin 10 MG TAB PO SCH (09:19)
[2020-05-02] MEDS: Losartan 25 MG TAB PO SCH (09:19)
[2020-05-02] MEDS: metFORMIN 500 MG TAB PO SCH (09:19)
[2020-05-02] MEDS: Carvedilol 25 MG TAB PO SCH (09:19)
[2020-05-02 11:18] VITALS: BP 124/72; TEMP 98.5
--- NOTE | 2020-05-02 12:32 | PRG ---
DATE OF SERVICE: 05/02/2020 Mr. Sweet is a pleasant 79-year-old man making a recovery from obstructive pyelonephritis secondary to nephrolithiasis. I have discussed the case with Dr. Martha Renee and agree with her assessment and plan. Job ID: [id number]
--- NOTE | 2020-05-03 15:15 | EKG ---
Test Reason : Blood Pressure : / mmHG Vent. Rate : 127 BPM Atrial Rate : 127 BPM P-R Int : 138 ms QRS Dur : 064 ms QT Int : 284 ms P-R-T Axes : 043 109 246 degrees QTc Int : 412 ms Sinus tachycardia with occasional Premature ventricular complexes Possible Right ventricular hypertrophy Marked ST abnormality, possible inferior subendocardial injury Abnormal ECG Confirmed by MARGA GENTILE M.D. ([id number]), tape editor GUTIERREZ ASHRAF ([id number]) on 05/03/2020 3:15:20 PM Referred By: Confirmed By:MARGA GENTILE M.D.
--- NOTE | 2020-05-04 12:28 | DIS ---
DATE OF ADMISSION: 04/22/2020 DATE OF DISCHARGE: 05/02/2020 RESIDENT: Martha Renee MD. ADMITTING ATTENDING: Carlos Guzman MD. DISCHARGE ATTENDING: Alberto Link MD. CONSULTS: 1. Pulmonology, Dr. Zuñiga. 2. Urology, Dr. Mao. 3. Cardiology, Dr. Long. 4. General Surgery, Dr. Caldwell. PROCEDURES: 1. Retrograde pyelogram: Placement of right ureteral stent, left kidney severe hydronephrosis. Abdomen and pelvis CT: Severe left-sided hydronephrosis and hydroureter with calculi in distal left ureter. Mild right-sided hydronephrosis and calculus in distal right ureter approximately 1 mm. 2. Cysto, bilateral retrogrades and bilateral stents performed by Dr. Mao on 04/22/2020. 3. Echocardiogram on 04/22/2020: EF 15% to 20%, mild mitral regurg, mild tricuspid regurg, large pleural effusion. 4. Echocardiogram on 04/29/2020: EF 50% to 55%, impaired relaxation compatible with diastolic dysfunction. 5. Brain MRI on 04/26/2020: No evidence of acute intracranial abnormality or acute stroke. 6. Brain CT on 04/24/2020: Diffuse cortical atrophy, no acute abnormalities. PRIMARY DIAGNOSES: Septic shock secondary to gram-negative Proteus bacteremia, secondary to acute versus acute on chronic nephrolithiasis. SECONDARY DIAGNOSES: 1. Imi-[id number] elevation myocardial infarction secondary to demand ischemia due to sepsis. 2. Paroxysmal tachycardia. 3. Transaminitis. 4. Thrombocytopenia. 5. Dysphagia. 6. Acute kidney injury versus acute kidney injury on chronic kidney disease. 7. Nephrolithiasis. 8. Hypokalemia. 9. Microcytic anemia. DISCHARGE MEDICATIONS: 1. Carvedilol 25 mg b.i.d. 2. Losartan 100 mg daily. 3. Alpha lipoic acid 200 mg daily. 4. Amlodipine 10 mg daily. 5. Aspirin 81 mg daily. 6. Clopidogrel 75 mg daily. 7. Diclofenac epolamine one patch q.12 hours p.r.n. 8. [place] 10-325 one tab daily p.r.n. 9. Latanoprost one drop in each eye daily. 10. Linagliptin 5 mg daily. 11. Metformin 500 mg b.i.d. 12. p.r.n. 13. Niacin 500 mg daily. 14. [place]-3 fatty acids/fish oil two tabs p.o. b.i.d. 15. Rosuvastatin 10 mg daily. 16. Sildenafil 100 mg p.r.n. Discontinued medications: Metoprolol and hydrochlorothiazide. HISTORY OF PRESENT ILLNESS: The patient is an 79-year-old male, who presented via EMS due to severe abdominal pain. 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 He was staying at a local hotel and started to not feel well, so called his son who then came here and called EMS. He was in very severe pain. Upon arrival to the ED, he was noted to have a temperature of 102.5 Fahrenheit, tachycardia, heart rate in the 120s. FAST exam showed severe hydronephrosis in the left kidney. CT abdomen and pelvis showed bilateral nephrolithiasis with hydronephrosis. The patient has a history of nephrolithiasis in the past including having a stent placed and removed within the last [address] Mao, urologist, was consulted from the ED and took the patient back to the operating room. Procedure as above. After surgery, the patient was not able to be extubated due to him having poor oxygen saturation, not being able to follow commands. Also noted to have elevated troponins and EKG showed ST depressions in leads V1 through V6. Cardiology was consulted and did not feel that urgent catheterization was needed, likely due to his severe sepsis. The patient continued to have hypotension and right internal jugular central line was placed on 04/22/2020. Dobutamine drip was initiated to help remedy the hypotension. Eventually, the patient stabilized and was able to be extubated on 04/24. The patient had a little bit of difficulty with his mentation for the next day or two. Imaging of the head was done and results as above. Initially, echo was done when the patient was in the acute phase of sepsis, results as above. New echo was done before he was discharged with improvement in his ejection fraction. At one point, Dr. Caldwell, General Surgery, was consulted for concern for intestinal ischemia. He had no concerns and no indication for surgery at this time. Throughout hospital stay, the patient improved in mentation and eventually getting back to his baseline. 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 His son was able to come and stay with him in the hospital. He was able to work with PT and OT. Originally, it was suggested that he would benefit from inpatient rehab and the patient was willing. The patient ended up staying longer in the hospital than anticipated due to the weather and being iced in. By the end of his stay, he and his son both felt that he was back to his baseline and was stable for discharge home. The patient's blood and urine culture grew Proteus mirabilis. He was treated with a full course of antibiotics per his sensitivities. Other lab abnormalities such as hypokalemia and MERNA, transaminitis, thrombocytopenia all resolved after treatment of his sepsis and prior to discharge. DISPOSITION: Stable. DISCHARGE INSTRUCTIONS: 1. Location: Home. 2. Diet: Heart healthy. 3. Activity: As tolerated. 4. Followup: The patient will need to follow up with his primary care physician in [place] within one week. The patient and son discussed with Dr. Mao that they would like to finish out the treatment for kidney stone and stent removal with his urologist back in the [place] area. Job ID: [id number]
== END 2020-05-02 14:45 | disposition home or self-care (01) | DRG 853 ==
LOC: ERS 05:03 → SDC 07:51 → CCU 07:56 → 2NO 04-25 13:06
PROVIDERS: ADMIT Family Medicine; ATTEND Family Medicine
PROC: 0T788DZ Dilation of Bilateral Ureters with Intraluminal Device, Via Natural or Artificial Opening Endoscopic (ICD-10-PCS; principal; 2020-04-22)
PROC: BT141ZZ Fluoroscopy of Kidneys, Ureters and Bladder using Low Osmolar Contrast (ICD-10-PCS; 2020-04-22)
PROC: 05HM33Z Insertion of Infusion Device into Right Internal Jugular Vein, Percutaneous Approach (ICD-10-PCS; 2020-04-22)
PROC: B543ZZA Ultrasonography of Right Jugular Veins, Guidance (ICD-10-PCS; 2020-04-22)
PROC: 0BH17EZ Insertion of Endotracheal Airway into Trachea, Via Natural or Artificial Opening (ICD-10-PCS; 2020-04-22)
PROC: 5A1945Z Respiratory Ventilation, 24-96 Consecutive Hours (ICD-10-PCS; 2020-04-22)
DX: A41.59 Other Gram-negative sepsis (principal); I21.A1 Myocardial infarction type 2; R65.21 Severe sepsis with septic shock; K55.069 Acute infarction of intestine, part and extent unspecified; J96.90 Respiratory failure, unspecified, unspecified whether with hypoxia or hypercapnia; N17.9 Acute kidney failure, unspecified; I42.9 Cardiomyopathy, unspecified; N20.2 Calculus of kidney with calculus of ureter; G93.40 Encephalopathy, unspecified; Z16.29 Resistance to other single specified antibiotic; N13.6 Pyonephrosis; R13.10 Dysphagia, unspecified; D50.9 Iron deficiency anemia, unspecified; I50.9 Heart failure, unspecified; I25.10 Atherosclerotic heart disease of native coronary artery without angina pectoris; I11.0 Hypertensive heart disease with heart failure; R31.9 Hematuria, unspecified; Z20.822 Contact with and (suspected) exposure to COVID-19; E87.6 Hypokalemia; D69.59 Other secondary thrombocytopenia; I48.0 Paroxysmal atrial fibrillation; Z86.73 Personal history of transient ischemic attack (TIA), and cerebral infarction without residual deficits; Z85.46 Personal history of malignant neoplasm of prostate; Z92.3 Personal history of irradiation
CPT/HCPCS: 0240U; 36415; 36416; 36600; 51701; 70450; 70553; 71045; 74176; 74420; 80048; 80053; 80061; 80074; 80202; 81003; 81015; 82533; 82550; 82553; 82607; 82728; 82747; 82805; 83540; 83550; 83605; 83735; 84100; 84145; 84466; 84484; 85025; 85049; 85060; 85300; 85362; 85379; 85384; 85610; 85730; 87040; 87077; 87086; 87149; 87186; 87389; 93005; 93010; 93306; 94002; 94003; 94760; 96365; 96375; A9579; C9113; J0692; J0696; J1250; J1644; J1650; J1720; J1940; J2060; J2270; J2704; J3010; J3370; J3480; J3490; J7050; P9045